=== PATIENT | female | born 1950 | race Caucasian/White ===

== ENCOUNTER 2017-01-04 16:37 | Emergency (ER) | payer MEDICARE, OTHER ==
[~2017-01-04] VITALS: Ht 170.2 cm; Wt 89.6 kg
[~2017-01-04 16:37] MED LIST: ACET-62 PO; ASCO500T9 PO; CALC750T4 PO; DRON400T2 PO; FEXO-118 PO; FURO40TA5 PO; LABE200T PO; LISI10TA7 PO; METF750T2 PO; OMEP20TA11 PO; RIVA20TA PO
--- OUTSIDE RECORDS SUMMARY | 2017-01-04 16:43 | XMS REPORT | Continuity of Care Document ---
Author Author [facility] Organization [facility] Address Unknown Phone Unavailable Support Name Relationship Address Phone JANUARY, GENE Ruggiero DO Caregiver [address] [place] [address] Unavailable MITCHEL ARGUELLO DO Caregiver [address] [place] [address] Unavailable JONATHAN SCOTT Next Of Kin [address] [place] [address] Insurance Providers Guarantor Ree Saab Address [address] [place] [address] Email [email or web address] Payer Medicare Policy Number [id number] Subscriber's Name Ree Saab Relationship 18 Self Payer Other A Insurance Policy Number [id number] Subscriber's Name Ree Saab Relationship 18 Self Group Number [id number] Chief Complaint and Reason for Visit Chief Complaint Palpitations Reason for Visit Palpitations A-fib Problems Active Problems Medical Problem Onset Date Status Acute encephalopathy Unknown Resolved Atrial Fibrillation Unknown Acute CAD (coronary artery disease) Unknown Chronic Chest rales Unknown Acute Diabetes mellitus Unknown Chronic Diarrhea Unknown Resolved Dyslipidemia Unknown Chronic Hypertension Unknown Chronic Hypokalemia Unknown Acute Left knee pain Unknown Acute Left knee pain Unknown Acute Leukocytosis Unknown Acute PSVT (paroxysmal supraventricular tachycardia) Unknown Acute Pneumonia involving left lung Unknown Acute Pulmonary edema Unknown Acute Sepsis Unknown Acute Past Problems Medical Problem Onset Date A-fib Unknown Atrial fibrillation with rapid ventricular response Unknown Laceration of mouth Unknown Palpitations Unknown Medications Current Home Medications Medication Dose Units Route Directions Days Qty Instructions Start Date Acetaminophen 500 Mg Tablet 2 Tab Oral Every 4 Hours as needed for Pain 03/04/15 Ascorbic Acid (Vitamin C) 500 Mg Tablet 500 Mg Oral As Needed Calcium Carbonate (Tums) 300 Mg Tab.chew 2 Tab Oral As Needed Dronedarone Hcl (Multaq) 400 Mg Tablet 400 Mg Oral Twice A Day Fexofenadine Hcl 180 Mg Tablet 180 Mg Oral Daily 06/15/16 Furosemide 40 Mg Tablet 40 Mg Oral Daily as needed for Prn Orders 03/04/15 Labetalol Hcl 200 Mg Tablet 200 Mg Oral Twice A Day 06/15/16 Lisinopril 10 Mg Tablet 10 Mg Oral Daily for Hypertension Metformin Hcl (Metformin Hcl Er) 750 Mg Tablet 750 Mg Oral Bedtime 07/31/14 Omeprazole Magnesium (Prilosec Otc) 20 Mg Tablet.dr 20 Mg Oral Daily 01/10/10 Rivaroxaban (Xarelto) 20 Mg Tablet 20 Mg Oral Bedtime 12/11/15 Past Home Medications Medication Directions Ordered Status Amiodarone Hcl 200 Mg Tablet, 1 Tab Oral Daily 03/04/15 Discontinued Cephalexin Monohydrate (Keflex) 500 Mg Capsule, 500 Mg Oral Three Times A Day 08/28/13 Discontinued Diltiazem Hcl (Diltiazem 24HR Cd) 360 Mg Cap.er.24h, 360 Mg Oral Daily Discontinued Flecainide Acetate 50 Mg Tablet, 1 Tab Oral Twice A Day 03/04/15 Discontinued Furosemide 40 Mg Tablet, 40 Mg Oral Twice A Day 07/31/14 Discontinued Magnesium Oxide (Magnesium) 500 Mg Capsule, 1 Cap Oral Twice A Day 07/31/14 Discontinued Metoprolol Tartrate 100 Mg Tablet, 1 Tab Oral Twice A Day 07/31/14 Discontinued Oxycodone Hcl/Acetaminophen (Percocet 5-325 Mg Tablet) 1 Each Tablet, 0.5-1 Tab Oral Every 4-6 Hours as needed for Pain 03/04/15 Discontinued Pindolol 5 Mg Tablet, 5 Mg Oral Daily 01/10/10 Discontinued Triamterene/Hydrochlorothiazid (Triamterene-Hctz 75-50 Tab) 1 Tab Tablet, 1 Cap Oral Daily 01/10/10 Discontinued Triamterene/Hydrochlorothiazid (Triamterene-Hctz 75/50 Tab) 1 Tab Tablet, 1 Tab Oral Daily 11/08/09 Discontinued Warfarin Sodium 5 Mg Tablet, 1 Tab Oral Bedtime 03/04/15 Discontinued Social History Social History Problem Response Recorded Date/Time Onset Date Status Hx Substance Use No 10/03/2016 6:54pm Not Applicable Not Applicable Hx Alcohol Use No 10/03/2016 6:54pm Not Applicable Not Applicable Has the pt used tobacco in the last 12 months No 12/12/2015 6:05am Not Applicable Not Applicable Tobacco Usage none 07/23/2015 3:23pm Not Applicable Not Applicable Query Response Start Date Stop Date Smoking Status Former smoker Hospital Discharge Instructions No hospital discharge instructions. Plan of Care Discharge Date 10/03/16 8:48pm Disposition 01 DISCHARGED HOME, SELF-CARE Condition at Discharge Improved Instructions/Education Provided Atrial Fibrillation Prescriptions See Medication Section Referrals MITCHEL ARGUELLO DO Order Date: 1 Week Address: [address] [place] [address] [address] [place] [address] [phone] Note: ANA VASQUEZ MD Order Date: 3 Days Address: [address] [place] [address] [address] [place] [address] [phone] Additional Instructions/Education You likely did convert to an abnormal rhythm. The multaq likely brought your heart back to a regular rhythm. Follow up with Dr. Vasquez next week ( preferably Thursday or Thursday). Follow up with your family doctor. I would not recommend taking this much multaq so soon in the future. Care Plan and Goals Physician Care Plan Problem: Palpitations Goal: Follow up with primary care provider Instructions: Take medications and follow care plan as discussed/written Functional Status No functional status results. Allergies, Adverse Reactions, Alerts Allergen Type Severity Reaction Status Last Updated hydrocodone bit Adverse Reaction Unknown N/V Active 10/03/16 Nitroglycerin Adverse Reaction Intermediate Active 10/03/16 Niacin Adverse Reaction Unknown N/V Active 10/03/16 Diazepam Allergy Unknown Active 10/03/16 Codeine Allergy Unknown Active 10/03/16 Sulbactam Allergy Unknown Active 10/03/16 Cefoperazone Allergy Unknown Active 10/03/16 Immunizations Query Response on File Recorded Date/Time Hx Influenza Vaccination No 12/11/15 8:51am Hx Pneumococcal Vaccination No 12/11/15 8:51am Hx Tetanus, Diptheria, Pertussis NO SKIN DISRUPTIONS 03/04/15 3:28pm Hx Influenza Vaccination No 12/11/15 8:51am Hx Tetanus, Diptheria, Pertussis NO SKIN DISRUPTIONS 03/04/15 3:28pm Influenza Vaccine Hx refuses 10/03/16 6:54pm Vital Signs Acute Vital Signs Vital Response Date/Time Temperature (Fahrenheit) 97.8 deg F (96.8 - 99.1) 10/03/2016 8:48pm Temperature (Calculated Celsius) 36.94483 degrees C (36.0 - 37.3) 10/03/2016 8:48pm Pulse Rate (adult) 70 bpm (60 - 100) 10/03/2016 8:48pm Respiratory Rate 22 breaths/min (10 - 20) 10/03/2016 8:48pm O2 Sat by Pulse Oximetry 94 % (90 - 100) 10/03/2016 8:48pm Blood Pressure 140/66 mm Hg 10/03/2016 8:48pm Height (Feet) 5 feet 10/03/2016 6:40pm Height (Inches) 5.00 inches 10/03/2016 6:40pm Weight (Kilograms) 96.000 kg 10/03/2016 6:40pm Body Mass Index (BMI) 35.0 10/03/2016 6:40pm Results Laboratory Results Test Name Result Units Flags Reference Collection Date/Time Result Date/ Time Comments White Blood Count 6.9 T/MM3 4.5-11.0 10/03/2016 7:02pm 10/03/2016 7: 10pm Red Blood Count 4.53 M/MM3 4.00-5.20 10/03/2016 7:02pm 10/03/2016 7: 10pm Hemoglobin 11.9 GM/DL L 12-16 10/03/2016 7:02pm 10/03/2016 7:10pm Hematocrit 37.8 % 36-46 10/03/2016 7:02pm 10/03/2016 7:10pm Mean Corpuscular Volume 83.4 UM3 80-100 10/03/2016 7:02pm 10/03/2016 7: 10pm Mean Corpuscular Hemoglobin 26.3 UUG 26-34 10/03/2016 7:02pm 2016 7:10pm Mean Corpuscular Hemoglobin Concent 31.5 GM/DL 31-37 10/03/2016 7:pm 10/03/2016 7:10pm RDW Standard Deviation 45.1 FL 36.9-50.2 10/03/2016 7:0210/03/2016 7 :10pm Platelet Count 172 T/MM3 130-400 10/03/2016 7:02pm 10/03/2016 7:10pm Mean Platelet Volume 11.1 UM3 9.4-12.4 10/03/2016 7:02pm 10/03/2016 7: 10pm Neutrophils (%) (Auto) 77.2 % H 33-66 10/03/2016 7:02pm 10/03/2016 7: 10pm Lymphocytes (%) (Auto) 12.6 % L 23-45 10/03/2016 7:02pm 10/03/2016 7: 10pm Monocytes (%) (Auto) 7.0 % 0-9.0 10/03/2016 7:02pm 10/03/2016 7:10pm Eosinophils (%) (Auto) 2.9 % 0-4 10/03/2016 7:02pm 10/03/2016 7:10pm Basophils (%) (Auto) 0.3 % 0-2 10/03/2016 7:02pm 10/03/2016 7:10pm Immature Granulocyte % (Auto) 0.0 % 0.0-0.5 10/03/2016 7:02pm 2016 7:10pm Absolute Neutrophils (auto) 5.3 T/MM3 1.8-7.7 10/03/2016 7:02pm 2016 7:10pm Absolute Lymphocytes (auto) 0.9 T/MM3 L 1-4.8 10/03/2016 7:02pm 2016 7:10pm Absolute Monocytes (auto) 0.5 T/MM3 0-0.8 10/03/2016 7:02pm 10/03/2016 7:10pm Absolute Eosinophils (auto) 0.2 T/MM3 0-0.5 10/03/2016 7:02pm 2016 7:10pm Absolute Basophils (auto) 0.0 T/MM3 0-0.2 10/03/2016 7:02pm 10/03/2016 7:10pm Absolute Immature Granulocyte (auto 0.00 T/MM3 0.00-0.03 10/03/2016 7: 02pm 10/03/2016 7:10pm Icterus Index < 2 0-7 10/03/2016 7:02pm 10/03/2016 7:16pm Chemistry Specimen Hemolysis < 15 0-25 10/03/2016 7:02pm 10/03/2016 7 :16pm 0-25: Specimen Exhibited No Hemolysis. Turbidity < 20 0-20 10/03/2016 7:02pm 10/03/2016 7:16pm Sodium Level 143 MEQ/L 134-144 10/03/2016 7:02pm 10/03/2016 7:16pm Potassium Level 3.9 MEQ/L 3.6-5 10/03/2016 7:02pm 10/03/2016 7:16pm Chloride Level 109 MEQ/L H 98-107 10/03/2016 7:02pm 10/03/2016 7:16pm Carbon Dioxide Level 23 MEQ/L 22-30 10/03/2016 7:02pm 10/03/2016 7: 16pm Anion Gap 11 MEQ/L 5-15 10/03/2016 7:02pm 10/03/2016 7:16pm Blood Urea Nitrogen 20.0 MG/DL H 7-17 10/03/2016 7:02pm 10/03/2016 7: 16pm Creatinine 1.3 MG/DL H 0.7-1.2 10/03/2016 7:02pm 10/03/2016 7:16pm BUN/Creatinine Ratio 15 RATIO 6-26 10/03/2016 7:02pm 10/03/2016 7:16pm Glomerular Filtration Rate Calc 41 10/03/2016 7:02pm 10/03/2016 7: 16pm Glucose Level 125 MG/DL H 65-110 10/03/2016 7:02pm 10/03/2016 7:16pm Calculated Osmolality 279 MOSM/KG 261-280 10/03/2016 7:02pm 10/03/2016 7:16pm Calcium Level 9.6 MG/DL 8.4-10.2 10/03/2016 7:02pm 10/03/2016 7:16pm Troponin I < 0.012 ng/ml 0-0.12 10/03/2016 7:02pm 10/03/2016 7:28pm Troponin values with a difference of 55% increase from orginal troponin value represent a true biological DELTA value. (%increase Calc=Orginal Troponin value, divided by subsequent Troponin value, multiplied by 100) Thyroid Stimulating Hormone (TSH) 2.26 MIU/L 0.47-4.68 10/03/2016 7: 02pm 10/03/2016 7:47pm Procedures Procedure Status Date Provider(s) Rpr f/e/e/n/l/m 2.5 cm/< Completed 09/18/16 SAVI ALVAREZ MD Emergency dept visit Completed 09/18/16 Encounters Encounter Location Arrival/Admit Date Discharge/Depart Date Attending Provider Departed Emergency Room [facility] 10/03/16 6:40pm 10/03/16 8: 48pm JANUARYGENE DO Departed Emergency Room [facility] 09/18/16 11:55pm 09/19/16 1: 31am SAVI ALVAREZ MD Recent Diagnosis
--- OUTSIDE RECORDS SUMMARY | 2017-01-04 16:43 | XMS REPORT | Continuity of Care Document ---
Author Author [facility] Organization [facility] Address Unknown Phone Unavailable Support Name Relationship Address Phone ANA VASQUEZ MD Caregiver [address] [place] [address] [address] [place] [address] Unavailable MITCHEL ARGUELLO DO Caregiver [address] [place] [address] Unavailable JONATHAN SCOTT Next Of Kin [address] [place] [address] Insurance Providers Guarantor Ree Saab Address [address] [place] [address] Email Payer Medicare Policy Number [id number] Subscriber's Name Ree Saab Relationship 18 Self Payer Other A Insurance Policy Number [id number] Subscriber's Name Ree Saab Relationship 18 Self Group Number [id number] Advance Directives Directive Response Recorded Date/Time Resuscitation Documents on File N PT VERBALLY REQUESTS FC 10/07/16 2:31pm DPOA for Healthcare Only No 10/07/16 2:31pm Living Will No 10/07/16 2:31pm Problems Active Problems Medical Problem Onset Date [...] Problem Response Recorded Date/Time Onset Date Status Reason for Hospitalization [facility] 10/07/2016 6:09pm Not Applicable Not Applicable Hx Substance Use No 10/03/2016 6:54pm Not Applicable Not Applicable Hx Alcohol Use No 10/03/2016 6:54pm Not Applicable Not Applicable Has the pt used tobacco in the last 12 months No 10/07/2016 2:37pm Not Applicable Not Applicable Tobacco Usage none 07/23/2015 3:23pm Not Applicable Not Applicable Query Response Start Date Stop Date Smoking Status Former smoker Hospital Discharge Instructions Instructions: Care Instructions: I was in the hospital because (patient own words): 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 Follow Up Appointments: Follow up with Dr. Vasquez on: 10/22/16 at 1:30 Pending Lab / Results: No Pending Lab Expected Signs/Symptoms: NA Notify Physician If: NA During Business Hours:: Please call the physician's office at [phone] After Business Hours:: Please call [phone] and have the bow making machine operator page the physician. Pain Management/Treatment: NA Pain Scale Utilized to Educate Patient: 0-10 Pain Scale Wound/Incision Care: NA Condition at time of discharge: Good Plan of Care Discharge Date 10/07/16 7:00pm Prescriptions See Medication Section Functional Status Query Response Date Recorded Mobility Status Ambulatory October 07, 2016 2:42pm Assistive Devices None October 07, 2016 2:42pm Activity Limitations None October 07, 2016 2:42pm Feeding Ability Independent October 07, 2016 2:42pm Toileting Ability Independent October 07, 2016 2:42pm Grooming Ability Independent October 07, 2016 2:42pm Dressing Ability Independent October 07, 2016 2:42pm Driving Ability Independent October 07, 2016 2:42pm Housework Ability Independent October 07, 2016 2:42pm Meal Preparation Ability Independent October 07, 2016 2:42pm Stair Climbing Ability Independent October 07, 2016 2:42pm Ability to complete ADL's impeded by No change October 07, 2016 2:42pm Cognitive/Perceptual Impairments Impaired vision October 07, 2016 2:42pm Visual Assistive Devices Glasses With patient October 07, 2016 2:42pm Preferred Method of Learning Listening October 07, 2016 2:42pm Allergies, Adverse Reactions, Alerts Allergen Type Severity Reaction Status Last Updated hydrocodone bit Adverse Reaction Unknown N/V Active 10/03/16 Nitroglycerin Adverse Reaction Intermediate Active 10/03/16 Niacin Adverse Reaction Unknown N/V Active 10/03/16 Diazepam Allergy Unknown Active 10/03/16 Codeine Allergy Unknown Active 10/03/16 Sulbactam Allergy Unknown Active 10/03/16 Cefoperazone Allergy Unknown Active 10/03/16 Immunizations Query Response on File Recorded Date/Time Hx Influenza Vaccination N DOES NOT TAKE 10/07/16 2:37pm Hx Pneumococcal Vaccination N DOES NOT TAKE 10/07/16 2:37pm Hx Tetanus, Diptheria, Pertussis NO SKIN DISRUPTIONS 03/04/15 3:28pm Hx Influenza Vaccination N DOES NOT TAKE 10/07/16 2:37pm Hx Tetanus, Diptheria, Pertussis NO SKIN DISRUPTIONS 03/04/15 3:28pm Influenza Vaccine Hx refuses 10/03/16 6:54pm Vital Signs Acute Vital Signs Vital Response Date/Time Temperature (Fahrenheit) 98.1 deg F (96.8 - 99.1) 10/07/2016 4:30pm Temperature (Calculated Celsius) 36.16539 degrees C (36.0 - 37.3) 10/07/2016 4:30pm Pulse Rate (adult) 86 bpm (60 - 100) 10/07/2016 5:15pm Respiratory Rate 31 breaths/min (10 - 20) 10/07/2016 5:15pm O2 Sat by Pulse Oximetry 95 % (90 - 100) 10/07/2016 5:15pm Oxygen Delivery Method Nasal Cannula 10/07/2016 4:15pm Oxygen Delivery Method Room Air 10/07/2016 5:15pm Oxygen Flow Rate 2.00 L/min 10/07/2016 4:15pm Blood Pressure 141/87 mm Hg 10/07/2016 5:15pm Blood Pressure Source Automatic Cuff 10/07/2016 5:15pm Height (Feet) 5 feet 10/07/2016 2:30pm Height (Inches) 5.00 inches 10/07/2016 2:30pm Weight (Kilograms) 93.500 kg 10/07/2016 2:30pm Body Mass Index (BMI) 34.3 10/07/2016 2:30pm Results Laboratory Results Test Name Result Units Flags Reference Collection Date/Time Result Date/ Time Comments White Blood Count 6.9 T/MM3 4.5-11.0 10/03/2016 7:02pm 10/03/2016 7: 10pm Red Blood Count 4.53 M/MM3 4.00-5.20 10/03/2016 7:02pm 10/03/2016 7: 10pm Hemoglobin 11.9 GM/DL L 12-16 10/03/2016 7:0210/03/2016 7:10pm Hematocrit 37.8 % 36-46 10/03/2016 7:10/03/2016 7:10pm Mean Corpuscular Volume 83.4 UM3 80-100 10/03/2016 7:10/03/2016 7: 10pm Mean Corpuscular Hemoglobin 26.3 UUG 26-34 10/03/2016 7:pm 2016 7:10pm Mean Corpuscular Hemoglobin Concent 31.5 GM/DL 31-37 10/03/2016 7:10/03/2016 7:10pm RDW Standard Deviation 45.1 FL 36.9-50.2 10/03/2016 7:10/03/2016 7 :10pm Platelet Count 172 T/MM3 130-400 10/03/2016 7:10/03/2016 7:10pm Mean Platelet Volume 11.1 UM3 9.4-12.4 10/03/2016 7:10/03/2016 7: 10pm Neutrophils (%) (Auto) 77.2 % H 33-66 10/03/2016 7:0210/03/2016 7: 10pm Lymphocytes (%) (Auto) 12.6 % L 23-45 10/03/2016 7:10/03/2016 7: 10pm Monocytes (%) (Auto) 7.0 % 0-9.0 10/03/2016 7:10/03/2016 7:10pm Eosinophils (%) (Auto) 2.9 % 0-4 10/03/2016 7:10/03/2016 7:10pm Basophils (%) (Auto) 0.3 % 0-2 10/03/2016 7:10/03/2016 7:10pm Immature Granulocyte % (Auto) 0.0 % 0.0-0.5 10/03/2016 7:2016 7:10pm Absolute Neutrophils (auto) 5.3 T/MM3 1.8-7.7 [...] T/MM3 0.00-0.03 10/03/2016 7: 02pm 10/03/2016 7:10pm Troponin I < 0.012 ng/ml 0-0.12 10/03/2016 7:02pm 10/03/2016 7:28pm Troponin values with a difference of 55% increase from orginal troponin value represent a true biological DELTA value. (%increase Calc=Orginal Troponin value, divided by subsequent Troponin value, multiplied by 100) Thyroid Stimulating Hormone (TSH) 2.26 MIU/L 0.47-4.68 10/03/2016 7: 02pm 10/03/2016 7:47pm Icterus Index < 2 0-7 10/07/2016 2:44pm 10/07/2016 3:20pm Chemistry Specimen Hemolysis < 15 0-25 10/07/2016 2:44pm 10/07/2016 3 :20pm 0-25: Specimen Exhibited No Hemolysis. Turbidity < 20 0-20 10/07/2016 2:44pm 10/07/2016 3:20pm Sodium Level 143 MEQ/L 134-144 10/07/2016 2:44pm 10/07/2016 3:20pm Potassium Level 4.0 MEQ/L 3.6-5 10/07/2016 2:44pm 10/07/2016 3:20pm Chloride Level 108 MEQ/L H 98-107 10/07/2016 2:44pm 10/07/2016 3:20pm Carbon Dioxide Level 20 MEQ/L L 22-30 10/07/2016 2:44pm 10/07/2016 3: 20pm Anion Gap 15 MEQ/L 5-15 10/07/2016 2:44pm 10/07/2016 3:20pm Blood Urea Nitrogen 18.0 MG/DL H 7-17 10/07/2016 2:44pm 10/07/2016 3: 20pm Creatinine 1.1 MG/DL 0.7-1.2 10/07/2016 2:44pm 10/07/2016 3:20pm BUN/Creatinine Ratio 16 RATIO 6-26 10/07/2016 2:44pm 10/07/2016 3:20pm Glomerular Filtration Rate Calc 50 10/07/2016 2:44pm 10/07/2016 3: 20pm Glucose Level 95 MG/DL 65-110 10/07/2016 2:44pm 10/07/2016 3:20pm Calculated Osmolality 277 MOSM/KG 261-280 10/07/2016 2:44pm 10/07/2016 3:20pm Calcium Level 9.8 MG/DL 8.4-10.2 10/07/2016 2:44pm 10/07/2016 3:20pm Total Bilirubin 1.10 MG/DL 0.20-1.30 10/07/2016 2:44pm 10/07/2016 3: 20pm Alkaline Phosphatase 94 U/L 38-126 10/07/2016 2:44pm 10/07/2016 3:20pm Total Protein 7.4 G/DL 6.3-8.2 10/07/2016 2:44pm 10/07/2016 3:20pm Albumin 4.5 G/DL 3.5-5.0 10/07/2016 2:44pm 10/07/2016 3:20pm Globulin 2.9 G/DL 2.4-3.6 10/07/2016 2:44pm 10/07/2016 3:20pm Albumin/Globulin Ratio 1.6 RATIO 1.1-2.2 10/07/2016 2:44pm 10/07/2016 3 :20pm Aspartate Amino Transf (AST/SGOT) 18 U/L 14-36 10/07/2016 2:44pm 2016 3:20pm Alanine Aminotransferase (ALT/SGPT) 30 U/L 9-52 10/07/2016 2:44pm 10/07 3:20pm Magnesium Level 1.9 MG/DL 1.6-2.3 10/07/2016 2:44pm 10/07/2016 3:20pm Procedures Procedure Status Date Provider(s) Rpr f/e/e/n/l/m 2.5 cm/< Completed 09/18/16 SAVI ALVAREZ MD Emergency dept visit Completed 09/18/16 Chest x-ray 2vw frontal&latl Completed 10/03/16 Metabolic panel total ca Completed 10/03/16 Assay thyroid stim hormone Completed 10/03/16 Assay of troponin quant Completed 10/03/16 Complete cbc w/auto diff wbc Completed 10/03/16 Electrocardiogram tracing Completed 10/03/16 Hydration iv infusion init Completed 10/03/16 Emergency dept visit Completed 10/03/16 [id number]"INFUSION, NORMAL SALINE SOLUTION , 1000 CC" Completed 10/03/16 Encounters Encounter Location Arrival/Admit Date Discharge/Depart Date Attending Provider Departed Clinic [facility] 10/07/16 1:56pm 10/07/16 7:00pm ANA VASQUEZ MD Departed Emergency Room [facility] 10/03/16 6:40pm 10/03/16 8: 48pm JANUARYGENE DO Departed Emergency Room [facility] 09/18/16 11:55pm 09/19/16 1: 31am SAVI ALVAREZ MD
[2017-01-04 16:45] VITALS: Ht 170.2 cm; Wt 89.6 kg
[2017-01-04 17:03] LABS: ALBUMIN 4.5 G/DL (3.5-5.0); ALBUMIN/GLOBULIN RATIO 1.5 RATIO (1.1-2.2); ALKALINE PHOSPHATASE 114 U/L (38-126); ALT (SGPT) 21 U/L (9-52); ANION GAP 16 MEQ/L (5-15); AST (SGOT) 26 U/L (14-36); BUN/CREATININE RATIO 15 RATIO (6-26); CALCIUM 9.8 MG/DL (8.4-10.2); CHLORIDE 102 MEQ/L (98-107); CO2 - CARBON DIOXIDE 24 MEQ/L (22-30); CREATININE 1.6 MG/DL (0.7-1.2); GLOMERULAR FILTRATION RATE 32; GLUCOSE 101 MG/DL (65-110); POTASSIUM 3.9 MEQ/L (3.6-5); SODIUM 142 MEQ/L (134-144); TOTAL PROTEIN 7.5 G/DL (6.3-8.2)
[2017-01-04 17:04] LABS: BASOPHILS % (AUTO) 0.1 % (0-2); EOSINOPHILS # (AUTO) 0.1 T/MM3 (0-0.5); HCT - HEMATOCRIT 39.1 % (36-46); HGB - HEMOGLOBIN 12.3 GM/DL (12-16); IMMATURE GRANULOCYTE # (AUTO) 0.03 T/MM3 (0.00-0.03); IMMATURE GRANULOCYTE % (AUTO) 0.4 % (0.0-0.5); LYMPHOCYTES # (AUTO) 0.9 T/MM3 (1-4.8); LYMPHOCYTES % (AUTO) 11.2 % (23-45); MEAN CORPUSCULAR HGB 25.5 UUG (26-34); MEAN CORPUSCULAR HGB CONC(MCHC 31.5 GM/DL (31-37); MEAN PLATELET VOLUME 12.1 UM3 (9.4-12.4); MONOCYTES # (AUTO) 0.9 T/MM3 (0-0.8); MONOCYTES % (AUTO) 11.7 % (0-9.0); NEUTROPHILS #(AUTO)-ABSOLUTE 5.8 T/MM3 (1.8-7.7); NEUTROPHILS % (AUTO) 75.6 % (33-66); RED BLOOD COUNT 4.83 M/MM3 (4.00-5.20); WBC - WHITE BLOOD COUNT 7.7 T/MM3 (4.5-11.0)
--- NOTE | 2017-01-04 17:08 | ERPDOC ---
Departure Disposition Decision Date: Jan 04, 2017 Disposition Decision Time: 18:01 Disposition: 02 TO [facility] ACUTE CARE Impression Impression Impression: Primary Impression: Aphasia Additional Impression: Right sided weakness Severity: Moderate Condition: Stable Seen By: Mid-level only Referrals: MITCHEL ARGUELLO DO (Family) Problems/Meds/Labs Reviewed?: Yes Medications reviewed and manag: Yes Follow up care ordered?: Yes Mental Status: Alert HPI - General Medical General Chief Complaint: Altered Mental Status Stated Complaint: ALTERED MENTAL STATUS Time Seen by Provider: 16:45 Source: patient Exam Limitations: no limitations HPI - General Medical Initial Comments She was at home today eating dinner with her sister and family. Her sister left to go run some errands for her. She called Ree at home and asked her some questions about the errands but wasnt able to understand her on the phone. She finished up her shopping and went to Ree's house. She was inside and was able to converse with her at that time better than on the phone but did not seem at her baseline. They did call EMS and have her transported. Per Medic she was able to converse and did seem to be doing better overall but upon arrival to the hospital she again seemed to not be able to speak easily at all. Does not seem to have any deficits as she is moving all extremities well on the bed but does not follow command. She does have a history of atrial fibrillation and does take Xarelto for this. She also did have a cardiac ablation done in early December. Occurred At: home Onset: Rapid Duration: 1 hr Severity: moderate Associated Symptoms: denies symptoms (due to ) Hx of Similar Symptoms: No Allergies: Coded Allergies: cefoperazone (Unverified Allergy, Unknown, 01/04/17) codeine (Verified Allergy, Unknown, 01/04/17) diazepam (Verified Allergy, Unknown, 01/04/17) sulbactam (Unverified Allergy, Unknown, 01/04/17) nitroglycerin (Verified Adverse Reaction, Intermediate, 01/04/17) MIGRAINES hydrocodone bit (Verified Adverse Reaction, Unknown, N/V, 01/04/17) niacin (Verified Adverse Reaction, Unknown, N/V, 01/04/17) Past History Past Medical History Metabolic: diabetes, hypertension Cardiac: A-fib, CAD GI: GERD Female: endometriosis, renal insufficiency Surgical History Cardiac: cardiac cath Family History Family PMH: FOUND: hypertension Vaccines Hx Influenza Vaccination: No (DOES NOT TAKE) Hx Pneumococcal Vaccination: No (DOES NOT TAKE) Social History Smoking Status: Never smoker Does patient use chewing tobac: No Substance Use Type: does not use Alcohol Intake: none Review of Systems Unable to Obtain ROS Due to: clinical condition, language barrier Constitutional Constitutional: DENIES: chills, dizziness, fatigue, fever, weakness Eyes Vision: DENIES: blurring, double vision ENMT Ears: DENIES: drainage, pain Sinuses: DENIES: congestion, rhinorrhea Mouth/Throat: DENIES: painful swallowing, scratchy throat, sore throat Cardiovascular Cardiac: DENIES: chest pain, orthopnea Rhythm/Rate: DENIES: irregular beat, palpitations Pulmonary Respiratory: DENIES: cough, dyspnea, sputum, tachypnea GI Upper Abdomen: DENIES: nausea, pain, vomiting Lower Abdomen: DENIES: constipation, diarrhea, pain Neurological General: DENIES: headache, numbness, tingling, weakness Physical Exam General General Nourishment: well nourished, well developed, appears stated age, no acute distress, adult General Body Habitus: well groomed Vitals and Pain First Documented Vital Signs Date Time Temp Pulse Resp B/P Pulse Ox O2 Delivery O2 Flow Rate FiO2 01/04/17 16:37 98.5 69 25 174/79 99 Room Air Weight: Kilograms: 89.600 Height (feet): 5 Height (inches): 7.00 Triage Pain Scale: RN VS reviewed by Provider: Yes Normal Exams: Head: Normocephalic w/o trauma Eyes: Pupils are PERRLA w/ EOMI, No scleral icterus, irritation, or foreign bodies noted ENMT: No facial trauma, nasal exudates, pharyngeal erythema, or exudates are noted Neck: Full range of motion, without adenopathy, JVD, bruits or thyromegaly Chest/Resp: Clear all ruiz, with good airflow, and symmetry bilaterally CV: Regular rate and rhythm, without murmur or gallop, Pulses 2+ all extremities, capillary refill, <2 seconds all ext., no pedal edema noted Abdomen: Bowel sounds positive, soft, non-tender, non-distended, no hepatosplenomegaly, masses or bruits noted Lymphatic: No lymphadenopathy, or lymphedema noted Integumentary: No rashes, hives, or bruising noted Neurologic: Patient is alert Psychiatric: Patient exhibits, appropriate attention, emotion and affect Neurologic Mental Status: FOUND: alert, other (She does not follow commands when asked to move her extremities. When asked if she knows where she is she does state yes but then does not have clear speech, is garbled, with her answer. ) GCS Adult : GCS Eye Opening: (4)Spontaneous GCS Verbal: (3)Inappropriate GCS Motor: (5)Localizes to Pain Differential Diagnoses Considering: CVA, Drug Overdose, Encephalitis, Hypo/Hyperglycemia, Hypo/ Hyperkalemia, Hypo/Hypernatremia, Medication Effect, Meningitis, Metabolic, Seizure, UTI Progress Results/Orders Orders Procedure Category Date Status Time Ct Head W/O Contrast CT 01/04/17 Taken Troponin I W LAB 01/04/17 Complete Hemolysis Index EKG EKG 01/04/17 Logged Cbc W/Auto LAB 01/04/17 Complete Diff-Reflex Manual Cmp - Comprehensive LAB 01/04/17 Complete Metabolic Iv Lock (Ed Only) EDM 01/04/17 Transmitted 16:44 Drug Screen LAB 01/04/17 Complete Urine-Test At [facility] [place] 17:35 UA, LAB 01/04/17 Complete Dip&Micro(Complete) & 17:45 Lab Results Laboratory Tests Test 01/04/17 16:48 01/04/17 17:45 White Blood Count 7.7T/MM3 Red Blood Count 4.83M/MM3 Hemoglobin 12.3GM/DL Hematocrit 39.1% Mean Corpuscular Volume 81.0UM3 Mean Corpuscular Hemoglobin 25.5UUG Mean Corpuscular Hemoglobin Concent 31.5GM/DL RDW Standard Deviation 45.7FL Platelet Count 187T/MM3 Mean Platelet Volume 12.1UM3 Immature Granulocyte % (Auto) 0.4% Neutrophils (%) (Auto) 75.6% Lymphocytes (%) (Auto) 11.2% Monocytes (%) (Auto) 11.7% Eosinophils (%) (Auto) 1.0% Basophils (%) (Auto) 0.1% Absolute Immature Granulocyte (auto 0.03T/MM3 Absolute Neutrophils (auto) 5.8T/MM3 Absolute Lymphocytes (auto) 0.9T/MM3 Absolute Monocytes (auto) 0.9T/MM3 Absolute Eosinophils (auto) 0.1T/MM3 Absolute Basophils (auto) 0.0T/MM3 Turbidity < 20 Sodium Level 142MEQ/L Potassium Level 3.9MEQ/L Chloride Level 102MEQ/L Carbon Dioxide Level 24MEQ/L Anion Gap 16MEQ/L Blood Urea Nitrogen 24.0MG/DL Creatinine 1.6MG/DL Glomerular Filtration Rate Calc 32 BUN/Creatinine Ratio 15RATIO Glucose Level 101MG/DL Calculated Osmolality 277MOSM/KG Calcium Level 9.8MG/DL Total Bilirubin 1.10MG/DL Icterus Index < 2 Aspartate Amino Transf (AST/SGOT) 26U/L Alanine Aminotransferase (ALT/SGPT) 21U/L Alkaline Phosphatase 114U/L Troponin I < 0.012ng/ml Total Protein 7.5G/DL Albumin 4.5G/DL Globulin 3.0G/DL Albumin/Globulin Ratio 1.5RATIO Chemistry Specimen Hemolysis < 15 Urine Collection Type Cleancatch-midstream Urine Color Yellow Urine Turbidity Clear Urine pH 5.5 Urine Specific [place] 1.020 Urine Protein 1+ Urine Glucose (UA) Negative Urine Ketones Trace Urine Blood Negative Urine Nitrite Negative Urine Bilirubin 1+ Urine Urobilinogen 0.2EU/DL Urine Leukocyte Esterase Negative Urine RBC 0-1/HPF Urine WBC 0-1/HPF Urine Squamous Epithelial Cells 5-10 Urine Amorphous Urates Few Urine Bacteria 1+ Urine Hyaline Casts 1-3/LPF Urine Mucus Present Urine Culture Indicated Cult not indicated Urine Opiates Screen PositiveNG/ML Urine Oxycodone Screen NegativeNG/ML Urine Methadone Screen NegativeNG/ML Urine Propoxyphene Screen NegativeNG/ML Urine Barbiturates Screen NegativeNG/ML Urine Tricyclic Antidepressants NegativeNG/ML Urine Phencyclidine Screen NegativeNG/ML Urine Amphetamines Screen NegativeNG/ML Urine Methamphetamines Screen NegativeNG/ML Urine Benzodiazepines Screen NegativeNG/ML Urine Cocaine Screen NegativeNG/ML Urine Cannabinoids Screen NegativeNG/ML Urine Drug Screen Confirmation Sent out Urine Drug Screen Information Pending Progress Progress 1717- CT scan today is negative for hemorrhage 1722-teleneurologist group notified of need for neurological evaluation 1723- Dr Whatley does return call. States that he is in the middle of another neurology consult and will contact for exam soon. 1744-Dr Whatley with patient on monitor for teleexam with family at bedside as well as RN and [employer]. She does continue to moan and move around but does calm during exam. Per Dr Whatley he is concerned that she may have some right sided weakness as she cannot hold her right arm up and he felt that she has a right sided facial drooping as well. Recommends transfer to stroke center for further evaluation. She is not a candidate for TPA due to her Xarelto usage. 1751- [facility] contacted for consult with neurology for transfer 180- Dr Grossman does accept patient for transfer to [facility]. He does request patient to get 500ml of NS bolus prior to transfer. This has been given. She will go to ER for CTA of head and neck up on arrival. 182-EMS at bedside and report given. She does continue to moan out and is more agitated. She does say "ow,ow,ow" and holds her head. CT CT : Reason for Exam: aphasia CT: Head no contrast Interpretation: Normal ROWDY ROACH APRN Jan 04, 2017 17:08
[2017-01-04 18:14] LABS: BLOOD, URINE NEGATIVE (NEGATIVE); COLOR,URINE YELLOW (YELLOW); LEUKOCYTE ESTERASE ,URINE NEGATIVE (NEGATIVE); NITRITE,URINE NEGATIVE (NEGATIVE); UROBILINOGEN,URINE 0.2 EU/DL (NORMAL)
--- NOTE | 2017-01-04 18:25 | NUR ---
REPORT GIVEN TO MERCED LAURENT AT NEURO ICU AT [facility].
[2017-01-04 18:26] LABS: BACTERIA,URINE 1+ (NEGATIVE); MUCUS,URINE PRESENT; RBC,URINE 0-1 /HPF (0-3); WBC,URINE 0-1 /HPF (0-5)
[2017-01-04 18:27] LABS: AMPHETAMINE SCREEN,URINE NEGATIVE; BARBITURATE SCREEN,URINE NEGATIVE; BENZODIAZEPINES SCREEN,URINE NEGATIVE; CANNABINOID SCREEN,URINE NEGATIVE; COCAINE SCREEN,URINE NEGATIVE; METHADONE SCREEN, URINE NEGATIVE; METHAMPHETAMINE SCREEN, URINE NEGATIVE; OPIATE SCREEN,URINE POSITIVE; PHENCYCLIDINE SCREEN,URINE NEGATIVE; TRICYCLIC ANTIDEPRESSANT,URINE NEGATIVE
[2017-01-04 18:28] VITALS: BP 179/77; PULSE 72; RESP 24; TEMP 98.5; O2SAT 100
--- NOTE | 2017-01-04 18:28 | NUR ---
TRANSFER PATIENT REPORT GIVEN TO [facility]. CARE ASSUMED BY EMS UNIT. PAPERWORK/CT DISC WAS GIVEN TO EMS UNIT. Addendum: 01/04/17 at 1954 by GURU IVF IVF NS FROM EMS RUNNING AT [facility].
--- NOTE | 2017-01-05 07:44 | DI ---
Indication: ITS.REASON: confusion PROCEDURE: CT HEAD W/O CONTRAST: Encounter: Initial Comparison: None Technique: Axial CT images through the head were performed without contrast. Iterative Reconstruction dose reducing techniques was utilized. FINDINGS: The ventricles are of normal size, shape, and contour for the patient's age. There are scattered areas of low attenuation in the white matter which most likely represent changes from chronic microvascular ischemia. The brainstem, cerebellum, and cerebral hemispheres otherwise have a normal morphology and CT attenuation. There is no evidence of midline displacement. No hemorrhage, signs of acute territorial stroke, mass effect, mass lesions, or edema is evident. The visualized portions of the skull base, midface, and calvarium demonstrate no abnormality. The paranasal sinuses are well aerated and free of significant disease. The tympanic and mastoid cavities appear normal. IMPRESSION: 1. Age-related atrophy and moderate deep/subcortical white matter disease without evidence for acute intracranial process or hemorrhage. MRI could be utilized to further evaluate for acute/recent infarct if clinically indicated. .
== END 2017-01-04 18:28 | disposition short-term general hospital (02) ==
LOC: ED 16:37
DX: R47.01 Aphasia (principal); R53.1 Weakness; I10 Essential (primary) hypertension; I48.91 Unspecified atrial fibrillation; Z79.01 Long term (current) use of anticoagulants; Z79.84 Long term (current) use of oral hypoglycemic drugs; Z79.899 Other long term (current) drug therapy
CPT/HCPCS: 51702; 80053; 80306; 81001; 84484; 85025; 93005

== ENCOUNTER 2017-02-02 06:06 | Day surgery (SDC) | payer MEDICARE, OTHER ==
--- NOTE | 2017-01-30 11:42 | NUR ---
PT STATUS Pt has a hx of A fib and A flutter.She reports having 9 cardioversions and 2 cardiac ablations. She reports the ablations from November 2016 "worked" and she is in sinus rhythm. There is a EKG from December in Dr Gates's chart that is NSR. I spoke with Denise Chowdhury CRNA regarding need for cardiac clearance. Pt does not have a hx of [place] or chest pain. After reading the echo report and hearing the patients history Denise Chowdhury CRNA said he did not need cardiac clearance for this pt
[2017-02-02] VITALS (10 sets, daily range): BP systolic 114–207; BP diastolic 58–100; PULSE 54–69; RESP 14–16; TEMP 97.8–98.2; O2SAT 90–99; Ht 162.6 cm; Wt 88.3 kg
[~2017-02-02] VITALS: Ht 162.6 cm; Wt 88.3 kg
[~2017-02-02 06:06] MED LIST changes: -ASCO500T9 PO; +ASCO500W7 PO; +CALC1TAB16 PO; -CALC750T4 PO; -FEXO-118 PO; -FURO40TA5 PO; +LIDOCAINE 1% (10mg/ml) 2ml SDV INJ ONE; +LR 1,000 ML IV PRN
--- OUTSIDE RECORDS SUMMARY | 2017-02-02 06:11 | XMS REPORT | Continuity of Care Document ---
Author Author [facility] Organization [facility] Address Unknown Phone Unavailable Support Name Relationship Address Phone SHOSHANA ESTRADA MD Caregiver [address] [place] [address] Unavailable MITCHEL ARGUELLO DO Caregiver [address] [place] [address] Unavailable LUIS MANUEL SAAB Next Of Kin [address] [place] [address] Insurance Providers Guarantor Ree Saab Address [address] [place] [address] Email [email or web address] Payer Medicare Policy Number [id number] Subscriber's Name Ree Saab Relationship 18 Self Payer Other A Insurance Policy Number [id number] Subscriber's Name Ree Saab Relationship 18 Self Group Number [id number] Chief Complaint and Reason for Visit Chief Complaint Altered Mental Status Reason for Visit Aphasia [id number] Problems Active Problems Medical Problem Onset Date [...] Problems Medical Problem Onset Date A-fib Unknown Aphasia Unknown Atrial fibrillation with rapid ventricular response Unknown Laceration of mouth Unknown Palpitations Unknown Right sided weakness Unknown Medications Current Home Medications Medication Dose Units Route Directions Days Qty Instructions Start Date Acetaminophen 500 Mg Tablet 1,000 Mg Oral Every 8 Hours as needed for Pain 03/04/15 Ascorbic Acid (Vitamin C) 500 Mg Tablet 500 Mg Oral As Needed Calcium Carbonate (Tums) 300 Mg Tab.chew 600 Mg Oral As Needed Dronedarone Hcl (Multaq) 400 Mg Tablet 400 Mg Oral Twice A Day Fexofenadine Hcl 180 Mg Tablet 180 Mg Oral Daily 06/15/16 Furosemide 40 Mg Tablet 40 Mg Oral Daily as needed for Prn Orders 03/04/15 Labetalol Hcl 200 Mg Tablet 200 Mg Oral Twice A Day 06/15/16 Lisinopril 10 Mg Tablet 10 Mg Oral Daily 06/15/16 Metformin Hcl (Metformin Hcl Er) 750 Mg [...] Onset Date Status Hx Substance Use No 01/04/2017 5:21pm Not Applicable Not Applicable Hx Alcohol Use No 01/04/2017 5:21pm Not Applicable Not Applicable Has the pt used tobacco in the last 12 months No 10/07/2016 2:37pm Not Applicable Not Applicable Tobacco Usage none 07/23/2015 3:23pm Not Applicable Not Applicable Query Response Start Date Stop Date Smoking Status Former smoker Hospital Discharge Instructions No hospital discharge instructions. Plan of Care Discharge Date 01/04/17 6:28pm Disposition 02 TO [facility] ACUTE CARE Condition at Discharge Stable Prescriptions See Medication Section Referrals MITCHEL ARGUELLO DO Address: [address] [place] [address] [place] [phone] Functional Status No functional status results. Allergies, Adverse Reactions, Alerts Allergen Type Severity Reaction Status Last Updated hydrocodone bit Adverse Reaction Unknown N/V Active 01/04/17 Nitroglycerin Adverse Reaction Intermediate Active 01/04/17 Niacin Adverse Reaction Unknown N/V Active 01/04/17 Diazepam Allergy Unknown Active 01/04/17 Codeine Allergy Unknown Active 01/04/17 Sulbactam Allergy Unknown Active 01/04/17 Cefoperazone Allergy Unknown Active 01/04/17 Immunizations Query Response on File Recorded Date/Time Hx Influenza Vaccination N DOES NOT TAKE 10/07/16 2:37pm Hx Pneumococcal Vaccination N DOES NOT TAKE 10/07/16 2:37pm Hx Tetanus, Diptheria, Pertussis NO SKIN DISRUPTIONS 03/04/15 3:28pm Hx Influenza Vaccination N DOES NOT TAKE 10/07/16 2:37pm Hx Tetanus, Diptheria, Pertussis NO SKIN DISRUPTIONS 03/04/15 3:28pm Influenza Vaccine Hx refuses 01/04/17 5:21pm Vital Signs Acute Vital Signs Vital Response Date/Time Temperature (Fahrenheit) 98.5 deg F (96.8 - 99.1) 01/04/2017 6:28pm Temperature (Calculated Celsius) 36.30045 degrees C (36.0 - 37.3) 01/04/2017 6:28pm Pulse Rate (adult) 72 bpm (60 - 100) 01/04/2017 6:28pm Respiratory Rate 24 breaths/min (10 - 20) 01/04/2017 6:28pm O2 Sat by Pulse Oximetry 100 % (90 - 100) 01/04/2017 6:28pm Oxygen Delivery Method Nasal Cannula 10/07/2016 4:15pm Oxygen Delivery Method Room Air 10/07/2016 5:15pm Oxygen Flow Rate 2.00 L/min 10/07/2016 4:15pm Blood Pressure 179/77 mm Hg 01/04/2017 6:28pm Blood Pressure Source Automatic Cuff 10/07/2016 5:15pm Height (Feet) 5 feet 01/04/2017 4:45pm Height (Inches) 7.00 inches 01/04/2017 4:45pm Weight (Kilograms) 89.600 kg 01/04/2017 4:45pm Body Mass Index (BMI) 30.0 01/04/2017 4:45pm Results Laboratory Results Test Name Result Units Flags Reference Collection Date/Time Result Date/ Time Comments Magnesium Level 1.9 MG/DL 1.6-2.3 10/07/2016 2:44pm 10/07/2016 3:20pm White Blood Count 7.7 T/MM3 4.5-11.0 01/04/2017 4:48pm 01/04/2017 5: 04pm Red Blood Count 4.83 M/MM3 4.00-5.20 01/04/2017 4:48pm 01/04/2017 5: 04pm Hemoglobin 12.3 GM/DL 12-16 01/04/2017 4:48pm 01/04/2017 5:04pm Hematocrit 39.1 % 36-46 01/04/2017 4:48pm 01/04/2017 5:04pm Mean Corpuscular Volume 81.0 UM3 80-100 01/04/2017 4:48pm 01/04/2017 5: 04pm Mean Corpuscular Hemoglobin 25.5 UUG L 26-34 01/04/2017 4:48pm 2016 5:04pm Mean Corpuscular Hemoglobin Concent 31.5 GM/DL 31-37 01/04/2017 4:48pm 01/04/2017 5:04pm RDW Standard Deviation 45.7 FL 36.9-50.2 01/04/2017 4:48pm 01/04/2017 5 :04pm Platelet Count 187 T/MM3 130-400 01/04/2017 4:48pm 01/04/2017 5:04pm Mean Platelet Volume 12.1 UM3 9.4-12.4 01/04/2017 4:48pm 01/04/2017 5: 04pm Neutrophils (%) (Auto) 75.6 % H 33-66 01/04/2017 4:48pm 01/04/2017 5: 04pm Lymphocytes (%) (Auto) 11.2 % L 23-45 01/04/2017 4:48pm 01/04/2017 5: 04pm Monocytes (%) (Auto) 11.7 % H 0-9.0 01/04/2017 4:48pm 01/04/2017 5:04pm Eosinophils (%) (Auto) 1.0 % 0-4 01/04/2017 4:48pm 01/04/2017 5:04pm Basophils (%) (Auto) 0.1 % 0-2 01/04/2017 4:48pm 01/04/2017 5:04pm Immature Granulocyte % (Auto) 0.4 % 0.0-0.5 01/04/2017 4:48pm 2016 5:04pm Absolute Neutrophils (auto) 5.8 T/MM3 1.8-7.7 01/04/2017 4:48pm 2016 5:04pm Absolute Lymphocytes (auto) 0.9 T/MM3 L 1-4.8 01/04/2017 4:48pm 2016 5:04pm Absolute Monocytes (auto) 0.9 T/MM3 H 0-0.8 01/04/2017 4:48pm 2016 5:04pm Absolute Eosinophils (auto) 0.1 T/MM3 0-0.5 01/04/2017 4:48pm 2016 5:04pm Absolute Basophils (auto) 0.0 T/MM3 0-0.2 01/04/2017 4:48pm 01/04/2017 5:04pm Absolute Immature Granulocyte (auto 0.03 T/MM3 0.00-0.03 01/04/2017 4: 48pm 01/04/2017 5:04pm Icterus Index < 2 0-7 01/04/2017 4:48pm 01/04/2017 5:03pm Chemistry Specimen Hemolysis < 15 0-25 01/04/2017 4:48pm 01/04/2017 5 :03pm 0-25: Specimen Exhibited No Hemolysis. Turbidity < 20 0-20 01/04/2017 4:48pm 01/04/2017 5:03pm Sodium Level 142 MEQ/L 134-144 01/04/2017 4:48pm 01/04/2017 5:03pm Potassium Level 3.9 MEQ/L 3.6-5 01/04/2017 4:48pm 01/04/2017 5:03pm Chloride Level 102 MEQ/L 98-107 01/04/2017 4:48pm 01/04/2017 5:03pm Carbon Dioxide Level 24 MEQ/L 22-30 01/04/2017 4:48pm 01/04/2017 5: 03pm Anion Gap 16 MEQ/L H 5-15 01/04/2017 4:48pm 01/04/2017 5:03pm Blood Urea Nitrogen 24.0 MG/DL H 7-17 01/04/2017 4:48pm 01/04/2017 5: 03pm Creatinine 1.6 MG/DL H 0.7-1.2 01/04/2017 4:48pm 01/04/2017 5:03pm BUN/Creatinine Ratio 15 RATIO 6-26 01/04/2017 4:48pm 01/04/2017 5:03pm Glomerular Filtration Rate Calc 32 01/04/2017 4:48pm 01/04/2017 5: 03pm Glucose Level 101 MG/DL 65-110 01/04/2017 4:48pm 01/04/2017 5:03pm Calculated Osmolality 277 MOSM/KG 261-280 01/04/2017 4:48pm 01/04/2017 5:03pm Calcium Level 9.8 MG/DL 8.4-10.2 01/04/2017 4:48pm 01/04/2017 5:03pm Total Bilirubin 1.10 MG/DL 0.20-1.30 01/04/2017 4:48pm 01/04/2017 5: 03pm Alkaline Phosphatase 114 U/L 38-126 01/04/2017 4:48pm 01/04/2017 5: 03pm Total Protein 7.5 G/DL 6.3-8.2 01/04/2017 4:48pm 01/04/2017 5:03pm Albumin 4.5 G/DL 3.5-5.0 01/04/2017 4:48pm 01/04/2017 5:03pm Globulin 3.0 G/DL 2.4-3.6 01/04/2017 4:48pm 01/04/2017 5:03pm Albumin/Globulin Ratio 1.5 RATIO 1.1-2.2 01/04/2017 4:48pm 01/04/2017 5 :03pm Aspartate Amino Transf (AST/SGOT) 26 U/L 14-36 01/04/2017 4:48pm 2016 5:03pm Alanine Aminotransferase (ALT/SGPT) 21 U/L 9-52 01/04/2017 4:48pm 01/04 5:03pm Troponin I < 0.012 ng/ml 0-0.12 01/04/2017 4:48pm 01/04/2017 5:14pm Troponin values with a difference of 55% increase from orginal troponin value represent a true biological DELTA value. (%increase Calc=Orginal Troponin value, divided by subsequent Troponin value, multiplied by 100) Urine Collection Type CLEANCATCH-MIDSTREAM 01/04/2017 5:45pm 2016 6:14pm Urine Color YELLOW YELLOW 01/04/2017 5:45pm 01/04/2017 6:14pm Urine Turbidity CLEAR CLEAR 01/04/2017 5:45pm 01/04/2017 6:14pm Urine Specific [place] 1.020 1.015-1.025 01/04/2017 5:45pm 2016 6:14pm Urine pH 5.5 5.0-8.0 01/04/2017 5:45pm 01/04/2017 6:14pm Urine Leukocyte Esterase NEGATIVE NEGATIVE 01/04/2017 5:45pm 2016 6:14pm Urine Nitrite NEGATIVE NEGATIVE 01/04/2017 5:45pm 01/04/2017 6:14pm Urine Protein 1+ A NEGATIVE 01/04/2017 5:45pm 01/04/2017 6:14pm Urine Glucose (UA) NEGATIVE NEGATIVE 01/04/2017 5:45pm 01/04/2017 6: 14pm Urine Ketones TRACE A NEGATIVE 01/04/2017 5:45pm 01/04/2017 6:14pm Urine Urobilinogen 0.2 EU/DL NORMAL 01/04/2017 5:45pm 01/04/2017 6: 14pm Urine Bilirubin 1+ A NEGATIVE 01/04/2017 5:45pm 01/04/2017 6:14pm Urine Blood NEGATIVE NEGATIVE 01/04/2017 5:45pm 01/04/2017 6:14pm Urine WBC 0-1 /HPF 0-5 01/04/2017 5:45pm 01/04/2017 6:26pm Urine RBC 0-1 /HPF 0-3 01/04/2017 5:45pm 01/04/2017 6:26pm Urine Squamous Epithelial Cells 5-10 01/04/2017 5:45pm 01/04/2017 6 :26pm Urine Bacteria 1+ H NEGATIVE 01/04/2017 5:45pm 01/04/2017 6:26pm Urine Amorphous Urates FEW 01/04/2017 5:45pm 01/04/2017 6:26pm Urine Mucus PRESENT 01/04/2017 5:45pm 01/04/2017 6:26pm Urine Hyaline Casts 1-3 /LPF 01/04/2017 5:45pm 01/04/2017 6:26pm Urine Culture Indicated CULT NOT INDICATED 01/04/2017 5:45pm 2016 6:26pm Procedures Procedure Status Date Provider(s) Comprehen metabolic panel Completed 10/07/16 Assay of magnesium Completed 10/07/16 Cardioversion electric ext Completed 10/07/16 ANA VASQUEZ MD Electrocardiogram tracing Completed 10/07/16 171350"INJECTION, MIDAZOLAM HYDROCHLORIDE, PER 1 MG" Completed 10/07/16 [id number]"INJECTION, FENTANYL CITRATE, 0.1 MG" Completed 10/07/16 Encounters Encounter Location Arrival/Admit Date Discharge/Depart Date Attending Provider Departed Emergency Room [facility] 01/04/17 4:37pm 01/04/17 6: 28pm SHOSHANA ESTRADA MD Departed Clinic [facility] 10/07/16 1:56pm 10/07/16 7:00pm ANA VASQUEZ MD Recent Diagnosis
--- NOTE | 2017-02-02 07:33 | ANESPREOP ---
Anesthesia Record Date and Time DATE: 02/02/17 TIME: 07:31 Pre-Op Diagnosis abn. pet scan Proposed Surgical Procedure fine needle aspiration of thyroid; bx of left inguinal lymph node Allergies: Coded Allergies: cefoperazone (Unverified Allergy, Unknown, 02/02/17) codeine (Verified Allergy, Unknown, 02/02/17) diazepam (Verified Allergy, Unknown, 02/02/17) sulbactam (Unverified Allergy, Unknown, 02/02/17) nitroglycerin (Verified Adverse Reaction, Intermediate, 02/02/17) MIGRAINES hydrocodone bit (Verified Adverse Reaction, Unknown, N/V, 02/02/17) niacin (Verified Adverse Reaction, Unknown, N/V, 02/02/17) Ht/Wt/BMI Height: 5 ' 4.00 " Weight: 88.300 kg BMI: 33.4 kg/m2 Vital Signs Date Time Temp Pulse Resp B/P Pulse Ox O2 Delivery O2 Flow Rate FiO2 02/02/17 06:24 97.8 62 14 207/100 95 Room Air Medications Inpatient Medications Current Medications Medications (Trade) Dose Ordered Sig/Agatha Start Time Stop Time Status Last Admin Dose Admin Lactated Ringer's (Lactated Ringers) 1,000 ml @ 50 mls/hr Q20H PRN 02/02/17 06:00 02/02/17 06:54 50 MLS/HR Acetaminophen (Acetaminophen) 500 Mg Tablet, 1,000 MG PO Q8H PRN for PAIN, ( Reported) Last Taken: on Unknown Date & Time Ascorbic Acid/Ascorbate Sodium (Vitamin C 500 mg Wafer) 500 Mg Wafer, 1 TAB PO DAILY, (Reported) Last Taken: on 01/31/17 2100 Calcium Carbonate (Calcium Carbonate) 500 Mg Tablet, 2 TAB PO DAILY, (Reported) Last Taken: on Unknown Date & Time Dronedarone HCl (Multaq) 400 Mg Tablet, 400 MG PO BID, (Reported) Last Taken: on 02/02/17 0530 Labetalol HCl (Labetalol HCl) 200 Mg Tablet, 200 MG PO BID, (Reported) Last Taken: on 02/02/17 0530 Lisinopril (Lisinopril) 10 Mg Tablet, 10 MG PO DAILY, (Reported) Last Taken: on 02/01/17 0700 Metformin HCl (Metformin HCl ER) 750 Mg Tablet , 750 MG PO ACS, (Reported) Last Taken: on 01/31/17 1700 Omeprazole Magnesium (Prilosec Otc) 20 Mg Tablet.dr, 20 MG PO DAILY, (Reported) Last Taken: on 02/01/17 1900 Rivaroxaban (Xarelto) 20 Mg Tablet, 20 MG PO HS , (Reported) Last Taken: on 01/30/17 1700 Discontinued Medications Ascorbic Acid (Vitamin C) 500 Mg Tablet, 500 MG PO PRN, (Reported) Calcium Carbonate (Tums) 300 Mg Tab.chew, 600 MG PO PRN, (Reported) Currently on Beta Piper: Yes Beta Piper Last Taken: labetolol at 0530 on 02/02/17 Medical/Surgical History Anesthesia PMH: Reports: *Diabetes (TYPE II), *Dyspnea (when in atrial fib), * Hypertension, Anesthesia Reactions (NO AIRWAY ISSUES KNOWN/ nausea), Arthritis ( knees & hands), CHF ("due to A Fib"), Cardiac Arrythmia (A-FIB), Obesity, Pneumonia (2 years ago), Reflux, Thyroid Disease (possible thyroid ca), Denies: *Angina, *MD, Asthma, Blood Transfusion Reac, COPD, CVA/Stroke/TIA, Cancer, Clotting Problems (ON XARELTO), Deep Vein Thrombosis, Glaucoma, Hepatitis, Hiatal Hernia, Malignant Hyperthermia, Pacemaker, Renal Disease, Rheumatic Fever , Seizures, Sleep Apnea, Tuberculosis Smoking Status: Never smoker Has pt. smoked today?: No Use Chewing Tobacco?: No Second Hand Exposure: No Substance Use Type: does not use Substance last used: unknown Alcohol Intake: none Last Drink: unknown HX of Last Menstrual Period: postmenopause Past Surgical History Orthopedic Surgeries: No Abdominal Surgeries: Yes - LAPAROSCOPY Genitourinary Surgeries: Yes - cysto/dil Cardiac Surgeries: Yes - ABLATIONS, MULTIPLE POINTS, PREVIOUS CARDIOVERSION Endocrine Surgeries: No Reproductive Surgeries: Yes - FIBROID TUMOR SCRAPED 2016 Neurological Surgeries: No Ear Surgeries: No Nose Surgeries: No Throat Surgeries: No Other Surgeries: Yes - colonoscopy Anesthesia Adverse Reactions: FOUND nausea and vomiting Family Hx of Anesthesia Advers: none Hx of Motion Sickness: Yes Pertinent Findings EKG Rhythm: Atrial Fibrillation Physical Exam Respiratory: Bilat breath sounds equal, Lungs clear Cardiovascular: FOUND Regular rate, rhythm, FOUND No murmur Airway Assessment Mallampati Score: II TMD: 3 Fingerbreadths Neck Extension: Good Overall Assessment: No Airway Concerns ASA: 3 Plan Anesthesia Plan: TIVA Discussion Discussed risks/options/alternatives of anesthesia and questions answered. Patient consents. Nursing pain assessment noted. Attestation Statement Prior to the delivery of any anesthetic medication, I examined the patient, developed the plan, obtained the patient's consent and discussed the risk and benefits of the procedure with the patient/guardian. TONNY EPSTEIN INSTRUCTOR TECHNICAL TRAINING February 02, 2017 07:33
[2017-02-02] MEDS ORDERED: SCOPOLAMINE 1.5 MG PATCH TD ONE (07:45)
[2017-02-02] MEDS ORDERED: BUPIVACAINE 0.25%/EPI 1:200,000 30ml SDV ONE (07:46)
[2017-02-02] MEDS ORDERED: GLYCOPYRROLATE 0.4mg/2ml INJECTION ONE (07:50)
[2017-02-02] MEDS ORDERED: ONDANSETRON 4mg/2ml INJECTION ONE (07:50)
[2017-02-02] MEDS ORDERED: PROPOFOL 500mg 50 ML IV ONE ×2 (07:50→08:40)
[2017-02-02] MEDS ORDERED: LIDOCAINE 2% (20mg/ml) 5ml PF SDV ONE (07:50)
[2017-02-02] MEDS ORDERED: FENTANYL 100mcg/2ml INJECTION ONE ×2 (07:59→08:59)
[2017-02-02] MEDS ORDERED: PROPOFOL 200mg 20 ML IV ONE (09:25)
[2017-02-02] MEDS ORDERED: RIVA20TA PO (09:40)
--- NOTE | 2017-02-02 09:56 | DI ---
Indication: ITS.REASON thyroid nodules PROCEDURE: US BIOPSY, THYROID: Encounter: Initial Comparison: None Technique/findings/ Impression: Grayscale and color Doppler sonographic imaging of the thyroid gland was performed in order to assist Dr. Moses with fine-needle aspiration of a thyroid nodule in each of the patient's thyroid lobes. There is a large heterogeneous nodule in the right lobe with internal vascularity measuring up to 2.2 cm in diameter and a smaller mildly heterogeneous nodule in the left lobe measuring up to 1.8 cm in diameter. .
[2017-02-02] MEDS: MORPHINE SULFATE 10 MG SYRINGE IV PRN ×2 (10:00→10:13)
[2017-02-02] MEDS ORDERED: ACETAMINOPHEN 500 MG TABLET PO ONE (10:00)
--- NOTE | 2017-02-02 10:19 | NUR ---
POST OP APPT APPT MADE FOR 02/17/17 @ 1:[address] QUESADA OFFICE.
--- NOTE | 2017-02-02 10:30 | ANESPO ---
Post-Op Note Date 02/02/17 Time: 10:29 Status Pt Participated in Evaluation: Pt participated in person Vital Signs Date Time Temp Pulse Resp B/P Pulse Ox O2 Delivery O2 Flow Rate FiO2 02/02/17 10:15 57 14 151/71 96 Nasal Cannula 1.00 02/02/17 09:39 98.2 Respiratory Function: Airway patent, Regular respirations Mental Status: Alert/oriented Pain Level Intensity: 5 Unable to Assess Pain Due To: Medicated/Sleeping Hydration: Taking po fluids, IV infusing Complications during Recovery None apparent Post-Anesthesia Notes pt. doing well Follow-Up Instructions Instructions Per Surgeon Additional Information none TONNY EPSTEIN CRNA February 02, 2017 10:30
--- NOTE | 2017-02-02 12:13 | OPNOTEF ---
DATE OF SERVICE 02/02/2017 SURGEON Cuate Moses MD PREOPERATIVE DIAGNOSIS Abnormal PET scan revealing areas of hypermetabolism including thyroid and left inguinal region, mass involving left inguinal region, personal history for abnormal thyroid sonogram. POSTOPERATIVE DIAGNOSIS Abnormal PET scan revealing areas of hypermetabolism including thyroid and left inguinal region, mass involving left inguinal region, personal history for abnormal thyroid sonogram. PROCEDURE Fine-needle aspiration of right and left thyroid lobe under sonographic guidance, excisional biopsy of deep left inguinal lymph node. ANESTHESIA TIVA/local BRIEF HISTORY/INDICATIONS Mrs. Edgar is a 66-year-old female who actually was found to have multiple abnormalities "serendipitously". The patient had developed some slurring of her speech after taking a fair amount of narcotics as a result of some left inguinal discomfort. The patient presented to the emergency room and had underwent a chest x-ray revealing a questionable lesion within her lung. The patient subsequently underwent a CT scan of her chest that did reveal a spiculated mass suspicious for lung carcinoma. Patient subsequently underwent further metastatic workup including a PET scan. Upon PET scan, she was found to have a suspicious area of hypermetabolism which corresponded with the lung mass, again suggestive of underlying lung cancer. In addition to this, however, she was found to have other areas of hypermetabolism within the left axilla and within the left inguinal region as well as within the mediastinum. Findings were also consistent with that of a probable lymphoma. Additionally area of intense hypermetabolism was also noted within the right thyroid lobe. The patient subsequently underwent thyroid sonogram that did reveal multiple nodularities within the right thyroid lobe. Additionally within the left thyroid lobe, there was a more central nodularity that did contain some calcifications. This was not found to have as much hypermetabolism on PET scan involving the left thyroid lobe but sonographically also appeared somewhat concerning. As a result of the above indications, it was recommended to the patient she should undergo a fine-needle aspiration of the thyroid as well as a left inguinal lymph node biopsy. Patient presents today to undergo these procedures. For completeness please refer to notes included in the patient's chart. DESCRIPTION OF PROCEDURE After informed consent was obtained, the patient was brought to the operative suite, placed on the table in supine fashion. After establishment of total intravenous anesthesia, a formal time-out was then completed. Next, the patient was placed in somewhat of a "beach-chair position". radiography technician was in the operative suite and she did place the ultrasound transducer upon the right lateral neck. One could see the trachea midline and attention was then focused towards the right thyroid lobe. Under sonographic guidance a 22-gauge needle as well as a 25-gauge needle was introduced into the central portion of the thyroid. In fact, three separate passes were made and slides were subsequently also made by the labor relations analyst. Next the transducer was then placed upon the left lateral neck in a supraclavicular fashion. One could see multiple calcifications with an associated nodularity within the central portion of left thyroid lobe. Under sonographic guidance, a 25-gauge needle was introduced x2 within the midportion of the thyroid lobe. One could ascertain that the nodule itself was fairly firm as one could see the needle passing into the nodule itself. Cellular contents were then placed upon slides for cytologic evaluation. The patient tolerated this first portion of the procedure without difficulty. Next, the left inguinal region was then prepped and draped in sterile fashion. A 0.25% Marcaine with epinephrine was injected overlying the proposed incision site. A 6 cm incision was then made from just beneath the left inguinal crease down upon to the mid anterior thigh overlying the palpable abnormality. Dissection was carried down into the deep subcuticular tissues. The patient was then found to have a large lymphomatous appearing mass that was on the order about 4-5 cm in diameter. I elected to go ahead and proceed with excision of this mass in almost its entirety. Vessels entering into the lymphomatous mass were sequentially divided between hemostats and ligated with 3-0 and 0 Vicryl ties. There was a portion of the lymphomatous mass that was located medially upon the mass that did course further deeper in towards the inguinal ligament. I elected to go ahead and divide this portion of the mass under direct visualization. Mass was sequentially divided between right angle clamps and ligated with 0 Vicryl ties. [id number] sutures of 3-0 Vicryl were also placed upon the remaining portion of the mass to provide hemostasis. Next about 90-95% of the mass was able to be completely dissected free was then passed off the table as a surgical specimen. Hemostasis was obtained within the wound. Wound was then irrigated. The wound was then closed in layers with 3-0 Vicryl. Skin itself was then closed in a subcuticular fashion with 4-0 Monocryl. Dermabond was placed overlying the incision. The patient is in the process of awakening from her anesthetic and will be sent back to the recovery room once deemed in stable condition. HEATHER
== END 2017-02-02 11:04 | disposition home or self-care (01) ==
LOC: SCU 06:06
PROVIDERS: ATTEND Surgery
DX: C82.05 Follicular lymphoma grade I, lymph nodes of inguinal region and lower limb (principal); E04.2 Nontoxic multinodular goiter; R93.8 Abnormal findings on diagnostic imaging of other specified body structures; Z79.84 Long term (current) use of oral hypoglycemic drugs
CPT/HCPCS: 38500; 60100; 76942; 82948; 88173; 88305; A9270; J2405; J2704; J3010; J7120; 88307; 88331; 88341; 88342

== ENCOUNTER 2017-11-09 01:27 | Inpatient (IN) ==
[2017-11-09] MEDS ORDERED: NS 1,000 ML IV ONE (01:45)
[2017-11-09] MEDS: SALINE FLUSH 10ml SYRINGE IVF PRN (01:45)
--- NOTE | 2017-11-09 01:52 | Emergency Department Report ---
GI Bleed HPI - General Stated complaint: rectal bleed Time Seen by Provider: 11/09/17 01:35 Source: patient, EMS Mode of arrival: EMS Limitations: no limitations - History of Present Illness HPI Narrative: Patient was at home, when she began with a very soft diarrhea stools around midnight tonight. Over the next hour and a half the patient progressed to having multiple diarrhea stools each one having greater and greater amounts of blood. Patient took some Pepto-Bismol and seemed to gain some relief, that she had a large "explosive" diarrhea stool all over her bathroom floor, that had a large amount of blood in it. Patient has a history of left pulmonary lymphoma, and less than one month ago had left lower lobectomy at the [facility]. Prior to that she had had chemotherapy for approximate 6 months, with good reduction and cancer size, and she was told that the lobectomy got all of the cancer out. Patient is also taking his overall toe after atrial fibrillation with cardiac ablation approximately one year ago. Patient had been on Coumadin prior to ablation, but after ablation she was placed on his overall toe and has had good results until now. Patient occasionally will have a small amount of blood in her stool, but has never had anything like this. Patient has no history of diverticulosis or ulcers, and currently has no abdominal pain, nausea, or cramps. - Related Data Home Medications Medication Instructions Recorded Confirmed Omeprazole Magnesium [Prilosec Otc] 20 mg PO DAILY #0 01/10/10 11/09/17 Dronedarone [Multaq] 400 mg PO BID #0 12/11/15 11/09/17 Labetalol HCl 1.5 mg PO BID #0 06/15/16 11/09/17 Lisinopril 10 mg PO DAILY #0 06/15/16 11/09/17 Furosemide [Lasix] 1 tab PO DAILY 11/09/17 11/09/17 Previous Rx's Medication Instructions Recorded Rivaroxaban [Xarelto] 20 mg PO HS #1 02/27/17 Allergies Allergy/AdvReac Type Severity Reaction Status Date / Time cefoperazone Allergy Unknown Verified 11/09/17 02:08 codeine Allergy Unknown Verified 11/09/17 02:08 diazepam Allergy Unknown Verified 11/09/17 02:08 sulbactam Allergy Unknown Verified 11/09/17 02:08 nitroglycerin AdvReac Intermediate Verified 11/09/17 02:08 hydrocodone AdvReac Unknown Nausea and Verified 11/09/17 02:08 Vomiting niacin AdvReac Unknown Nausea and Verified 11/09/17 02:08 Vomiting Review of Systems All systems: reviewed and negative except as stated PFSH Patient Stated Medical History Cardiac Arrhythmia Yes: AFIB Hypertension Yes Sleep Apnea Yes Other Respiratory Yes: 09/23 LEFT LUNG CA/REMOVED 10/08 Diabetes Mellitus Type 1 Yes Diabetes Mellitus Type 2 Yes Other GI Yes: CURRENT BLOOD/DIARRHEA Hx Kidney Stones Yes: hx. Clotting Problems Yes: XARALTO Osteoarthritis Yes: knee Anesthesia Reactions Yes Depression Yes Clinic Medical History (Last Updated 08/11/17 @ 13:58 by Soheila Jones APRN) Atrial fibrillation (Acute Medical) Diabetes 1.5, managed as type 2 (Acute Medical) GERD (gastroesophageal reflux disease) (Acute Medical) HTN (hypertension) (Acute Medical) Lymphoma (Acute Medical) Surgical History: cardiac ablation 11/2016. Port-a-cath 02/27/2017. Excision inguinal lymph node - lymphoma 02/02/2017. Left lower lobectomy, September 2017 Family History: Family History (Last Updated 08/11/17 @ 14:04 by Soheila Jones APRN) Father CAD (coronary atherosclerotic disease) Diabetes Heart disease Mother Heart disease Sister Ovarian cancer - Social History Smoking status: Former smoker Substance use type: does not use Alcohol intake frequency: does not drink Physical Exam - Limitations Limitations: no limitations - General General appearance: alert, anxious - Normal Exams: Head:: Normocephalic without trauma Eyes:: Pupils are PERRLA w/ EOMI, No scleral icterus, irritation, or foreign bodies noted ENMT:: No facial trauma, nasal exudates, pharyngeal erythema, or exudates are noted Neck:: Full range of motion, without adenopathy, JVD, bruits or thyromegaly Chest/Respirations:: Clear all ruiz, with good airflow, and symmetry bilaterally Cardiovascular:: Regular rate and rhythm, without murmur or gallop, Pulses 2+ all extremities, capillary refill, <2 seconds all extremities Lymphatic:: No lymphadenopathy, or lymphedema noted Musculoskeletal:: No tenderness, or deformity noted, good range of motion, all extremities Integumentary:: No rashes, hives, or bruising noted, hair and nails, without abnormality Neurological:: Patient is alert, and oriented, cranial nerves, motor/sensory/ cerebellar, exams w/o gross deficits, to observation Psychiatric:: Patient exhibits, appropriate attention, emotion and affect - Abdominal Exam Abdominal exam: Present: soft, normal bowel sounds. Absent: distention, tenderness, guarding, rebound, rigidity - Rectal Exam Rectal exam: Present: heme (+) stool, bloody stool (dark bloody stool,) Course Vital Signs Temperature 98.0 F 11/09/17 01:30 Pulse Rate 78 11/09/17 01:30 Respiratory Rate 20 11/09/17 01:30 Blood Pressure 182/84 H 11/09/17 01:30 Pulse Oximetry 97 11/09/17 01:30 Temperature 98.2 F 11/09/17 02:23 Pulse Rate 82 11/09/17 02:23 Respiratory Rate 16 11/09/17 02:23 Blood Pressure 163/80 H 11/09/17 02:23 Pulse Oximetry 97 11/09/17 02:23 GI Bleed - MDM Narrative Medical decision making narrative: Patient is given 1 L normal saline IV fluid bolus, but declines medication for nausea or pain at this time CBC -mild decreased hemoglobin CMP/L - normal Case is discussed with Dr. Sosa who will admit the patient for admission for GI bleed - Lab Data Result diagrams: 11/09/17 01:45 11/09/17 01:45 Lab Results 11/09/17 11/09/17 Range/Units 01:45 01:45 WBC 5.4 (4.5-11.0) T/MM3 RBC 3.63 L (4.00-5.20) M/MM3 Hgb 9.2 L (12-16) GM/DL Hct 30.3 L (36-46) % MCV 83.5 (80-100) UM3 MCH 25.3 L (26-34) UUG MCHC 30.4 L (31-37) GM/DL RDW Std Deviation 40.5 (36.9-50.2) FL Plt Count 230 (130-400) T/MM3 MPV 10.6 (9.4-12.4) UM3 Immature Gran % (Auto) 0.2 (0.0-0.5) % Neut % (Auto) 80.9 H (33-66) % Lymph % (Auto) 7.4 L (23-45) % [place] % (Auto) 7.2 (0-9.0) % Eos % (Auto) 4.1 H (0-4) % Baso % (Auto) 0.2 (0-2) % Neut # (Auto) 4.4 (1.8-7.7) T/MM3 Lymph # (Auto) 0.4 L (1-4.8) T/MM3 [place] # (Auto) 0.4 (0-0.8) T/MM3 Eos # (Auto) 0.2 (0-0.5) T/MM3 Baso # (Auto) 0.0 (0-0.2) T/MM3 Abs Immat Gran (auto) 0.01 (0.00-0.03) T/MM3 Turbidity < 20 (0-20) Sodium 145 H (134-144) MEQ/L Potassium 3.9 (3.6-5) MEQ/L Chloride 105 (98-107) MEQ/L Carbon Dioxide 28 (22-30) MEQ/L Anion Gap 12 (5-15) MEQ/L BUN 20.0 H (7-17) MG/DL Creatinine 1.0 (0.7-1.2) MG/DL GFR Calculation 55 BUN/Creatinine Ratio 20 (6-26) RATIO Glucose 124 H (65-110) MG/DL Calculated Osmolality 283 H (261-280) MOSM/KG Calcium 9.1 (8.4-10.2) MG/DL Total Bilirubin 0.20 (0.20-1.30) MG/DL Conjugated Bilirubin 0.00 (0.00-0.30) MG/DL Unconjugated Bilirubin 0.00 (0.00-1.1) MG/DL Icterus Index < 2 (0-7) AST 13 L (14-36) U/L ALT 19 (9-52) U/L Alkaline Phosphatase 101 (38-126) U/L Total Protein 6.6 (6.3-8.2) G/DL Albumin 4.0 (3.5-5.0) G/DL Globulin 2.6 (2.4-3.6) G/DL Albumin/Globulin Ratio 1.5 (1.1-2.2) RATIO Lipase 226 (23-300) U/L Specimen Hemolysis < 15 (0-25) Disposition Clinical Impression: GI bleed Qualifiers: GI bleed type/associated pathology: unspecified gastrointestinal hemorrhage type Qualified Code(s): K92.2 - Gastrointestinal hemorrhage, unspecified Disposition: 02 To [facility] [place] Care Condition: Stable Prescriptions: No Action Lisinopril 10 mg PO DAILY #0 Rivaroxaban [Xarelto] 20 mg PO HS #1 Omeprazole Magnesium [Prilosec Otc] 20 mg PO DAILY #0 Dronedarone [Multaq] 400 mg PO BID #0 Labetalol HCl 1.5 mg PO BID #0 Furosemide [Lasix] 1 tab PO DAILY Referrals: Vinod Vang MD [Family Provider] - - Seen By: physician
[2017-11-09] MEDS ORDERED: PANTOPRAZOLE 40 MG INJECTION IVP ONE (02:17)
[2017-11-09] MEDS ORDERED: Oxycodone/Acetaminophen 5/325 1 TAB PO ONE (02:52)
[2017-11-09] MEDS ORDERED: PROCHLORPERAZINE 10 MG TABLET PO ONE ×2 (02:52→13:26)
[2017-11-09] MEDS ORDERED: ONDANSETRON 4 MG/2 ML INJECTION IVP PRN (04:13)
[2017-11-09] MEDS ORDERED: LR 1,000 ML IV SCH (04:13)
[2017-11-09] MEDS ORDERED: MORPHINE SULFATE 4mg INJECTION IVP PRN (04:13)
[2017-11-09] MEDS ORDERED: ALBUTEROL 2.5mg/3ml (0.083%) NEB IPPB PRN (04:25)
[2017-11-09 04:28] VITALS: BMI 33.5
--- NOTE | 2017-11-09 04:30 | History & Physical Report ---
History of Present Illness Date: 11/09/17 Chief complaint: blood in stool HPI: Patient seen via telemedicine with nursing assistance on 11/09/2017. Ms. Edgar is a 67yo woman with h/o lymphoma 12/2016 s/p chemo and then 09/2017 LLLobectomy for NSCLC, afib on Xarelto but now s/p ablation and was to see Enzo 11/11/2017 to discuss need for further anticoagulation and no other DVT/ PE hx. Notes GERD but no other GI bleed history until tonight with 5 stools over 4 hours starting at [place] with no nausea or abd pain. Had colonoscopy 5-7 years ago and was to see Aurelia next month for endoscopy eval. No syncope, fevers, chills, pain currently. Son with her says mentating fine. Review of Systems All systems PM: 10-point ROS was reviewed, no additional remarkable complaints except Past Medical History Patient Stated Medical History Cardiac Arrhythmia Yes: AFIB Hypertension Yes Sleep Apnea Yes Other Respiratory Yes: 09/23 LEFT LUNG CA/REMOVED 10/08 Diabetes Mellitus Type 2 Yes: Bordline, diet controlled. Other GI Yes: CURRENT BLOOD/DIARRHEA Hx Kidney Stones Yes: hx. Hx Urinary Tract Infection Yes Clotting Problems Yes: XARALTO Osteoarthritis Yes: knee Anesthesia Reactions Yes Depression Yes Clinic Medical History (Last Updated 08/11/17 @ 13:58 by Soheila Jones APRN) Atrial fibrillation (Acute Medical) Diabetes 1.5, managed as type 2 (Acute Medical) GERD (gastroesophageal reflux disease) (Acute Medical) HTN (hypertension) (Acute Medical) Lymphoma (Acute Medical) Surgical History: cardiac ablation 11/2016. Port-a-cath 02/27/2017. Excision inguinal lymph node - lymphoma 02/02/2017. Left lower lobectomy, September 2017 Family History: Family History (Last Updated 08/11/17 @ 14:04 by Soheila Jones APRN) Father CAD (coronary atherosclerotic disease) Diabetes Heart disease Mother Heart disease Sister Ovarian cancer Family History Updates: mother 08/2017 CHF and father of CHF previously - Social History Smoking status: Former smoker Substance use type: does not use Medications Home Medications Medication Instructions Recorded Confirmed Type Omeprazole Magnesium [Prilosec Otc] 20 mg PO DAILY #0 01/10/10 11/09/17 History Dronedarone [Multaq] 400 mg PO BID #0 12/11/15 11/09/17 History Labetalol HCl 1.5 mg PO BID #0 06/15/16 11/09/17 History Lisinopril 10 mg PO DAILY #0 06/15/16 11/09/17 History Furosemide [Lasix] 1 tab PO DAILY 11/09/17 11/09/17 History Oxycodone/Apap 10/325 [Percocet 1 tab PO Q6HR 11/09/17 11/09/17 History 10/325] Prochlorperazine Maleate 1 tab PO Q6HR PRN 11/09/17 11/09/17 History [Compazine] Allergies Allergy/AdvReac Type Severity Reaction Status Date / Time cefoperazone Allergy Unknown Verified 11/09/17 02:08 codeine Allergy Unknown Verified 11/09/17 02:08 diazepam Allergy Unknown Verified 11/09/17 02:08 sulbactam Allergy Unknown Verified 11/09/17 02:08 nitroglycerin AdvReac Intermediate Verified 11/09/17 02:08 hydrocodone AdvReac Unknown Nausea and Verified 11/09/17 02:08 Vomiting niacin AdvReac Unknown Nausea and Verified 11/09/17 02:08 Vomiting Exam Vital Signs: Temperature 98.2 F 11/09/17 02:23 Pulse Rate 85 11/09/17 02:58 Respiratory Rate 16 11/09/17 02:58 Blood Pressure 179/77 H 11/09/17 02:58 Pulse Oximetry 96 11/09/17 02:58 Telemetry Rhythm: Sinus Rhythm - Constitutional Present: no acute distress - Routine HEENT Exam Head: Present: normocephalic, atraumatic Eye: Present: EOMI ENT: Present: mucous membranes dry - Routine Respiratory Exam Present: CTA bilaterally. Absent: accessory muscle use - Routine Cardiovascular Exam Present: RRR, S1, S2, no murmur - Routine Abdominal Exam Present: soft Comments: hyperactive bowel sounds with no tenderness - Routine Extremities Exam Absent: cyanosis, clubbing, edema - Routine Skin Exam Present: intact - Routine Neurological Exam Present: alert, oriented X3, CN II-XII intact Results - Labs CBC & Chem 7: 11/09/17 06:50 11/09/17 01:45 Assessment and Plan (1) GI bleed Current visit: Yes Status: Acute (2) HTN (hypertension) Current visit: Yes Status: Acute (3) Hyperglycemia Current visit: Yes Status: Acute (4) Anemia Current visit: Yes Status: Acute (5) GERD (gastroesophageal reflux disease) Current visit: Yes Status: Acute Assessment and Plan: 1. Acute lower GI bleed based on history and BUN 20--admit to inpatient with hgb again in 2 hours, PPI IV, npo, IVF, prns for pain and nausea. May need Aurelia consult for colonoscopy this admit. More likely diverticular, hemorrhoidal, than other. 2. GERD hx on PPI 3. Normocytic anemia with prior 10, stable BP. Recheck and transfuse if less than 7 4. Paroxysmal afib s/p ablation and should come off Xarelto now. 5. Hyperglycemia likely stress induced 6. s/p LLLobectomy for NSCLC and chronic hypoxic resp failure on 2L NC 7. h/o lymphoma s/p chemo. DVT Prophylaxis: SCD's GI Prophylaxis: Protonix Resuscitation Status: Full Code - Time spent with patient Time with patient PN: 70 minutes - Physician Narrative Physician: Mayra De La Fuente MD Narrative: Date: 11/09/17 Time: 929 Dr. De La Fuente I have seen and examined the patient. I've reviewed the H&P above by Dr. Sosa and agree. Please see my additions below. Chief complaint: Bloody stools History of present illness: Patient is a pleasant 67-year-old female who had lymphoma in December 2016 for which she underwent chemotherapy with Dr. Vang. She was then diagnosed with non-small cell lung cancer and underwent a left lower lobe lobectomy on 10/13/2017. Since that time, she has been on supplemental oxygen. She states that a couple of months ago she noticed some black tarry stools but then they resolved. Recently she has noticed some mucus surrounding her bowel movement and sometimes the mucus is "efe" colored. She was scheduled to have a colonoscopy in the near future with Dr. Moses. Last night she developed red bloody stools with some mild lower abdominal discomfort. She had for 5 stools last night prior to coming to the emergency room. Hemoglobin last evening was 9.2 at 145 this morning. On recheck at 06 50 this morning was 7.6. She denies any chest pain or lightheadedness. She states she has been short of breath for about 3-4 years and has been on oxygen since her left lower lobe lobectomy. She denies really more short of breath now and she has in the past 3- 4 years. She underwent ablation for atrial fibrillation in November 2016. As far she is aware, she has been in sinus rhythm since that time. She is currently on Xarelto to prevent stroke with her A. fib. Her last dose was 5 PM yesterday. Past medical history is reviewed and agree. Surgical history is reviewed and agreed. Family history is reviewed above. Social history the patient is a former smoker. She is single. She wants her son Bridger make medical decisions for her if she cannot make them herself. She does want to fill out DPOA paperwork today. Medications are reviewed and in addition she is on Xarelto 20 mg daily Allergies are reviewed Comprehensive review of systems is negative other than the above in history of present illness Physical exam Afebrile, heart rate 74, blood pressure 173/79, O2 sat 96% on room air Gen. this is a well-developed well-nourished anxious female HEENT-pupils are equal and round, extraocular movements are intact, oropharynx is moist NECK-supple CV-regular rate and rhythm CHEST-clear to auscultation bilaterally ABD-soft, mildly tender, but without rebound or guarding positive bowel sounds , nondistended -no Potts EXT-no edema NEURO-no focal deficits SKIN-warm and dry without rashes Impression GI bleed-likely lower Acute blood loss anemia Chronic anticoagulation with Xarelto Hypertension GERD Black stools 2 months ago-no recurrence History of A. fib Plan Transfuse 1 unit of blood now. Stay 2 units of blood had Consider aPCC if bleeding worsens Serial hemoglobin Protonix IV Consult Dr. Roman. I did discuss the patient with him earlier today Iron panel, B-12, folate Continue antihypertensives if blood pressures allow Continue multaq DC Xarelto. The patient was transferred from the medical floor to CCU for closer monitoring. Discussed with patient's son who the patient wants to be DPOA. Greater than 70 minutes of critical care time spent seeing and evaluating patient in determining care plan. Hospital Course Summary Disclaimer: The visit summary below is not to be considered part of the above Progress Note.
[2017-11-09] MEDS ORDERED: NS FLUSH BAG 500ml IV PRN ×3 (07:59→08:35)
[2017-11-09] MEDS ORDERED: DiphenhydrAMINE 25 MG CAPSULE PO ONE (08:35)
[2017-11-09] MEDS ORDERED: ACETAMINOPHEN 325 MG TABLET PO ONE (09:24)
[2017-11-09] MEDS: NS 1,000 ML IV SCH ×2 (09:52→20:55)
[2017-11-09] MEDS ORDERED: FUROSEMIDE 20 MG/2 ML INJECTION IVP ONE (09:55)
[2017-11-09] MEDS: LABETALOL 100 MG TABLET PO SCH ×2 (12:33→20:53)
[2017-11-09] MEDS: PANTOPRAZOLE 40 MG INJECTION IVP SCH ×2 (12:33→22:17)
[2017-11-09] MEDS: Oxycodone/Apap 10/325 1 TAB PO SCH ×2 (15:59→21:15)
--- NOTE | 2017-11-09 17:19 | General Surgery Consult Note ---
Consult date: 11/09/17 Attending Physician: Mayra De La Fuente MD Reason for consult: other (GI bleed) [facility] Medical History (Last Updated 11/09/17 @ 17:07 by Cuate Roman MD) Non-small cell cancer of left lung (Acute Medical) Oncologist: Dr. 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 Vang Non Hogkin's lymphoma Surgical History: * Colonoscopy - 11/08/[address] Gupta. Only showed 4 hyperplastic polyps. * Laparoscopy with removal of hemorrhagic epiploic fat - 12/12/[address] Reyes. * Cardiac ablation - [address] Hand. * Hysteroscopy and D&C - 12/12/[address] Clement. * Cardiac ablation - 11/[address] Hand. * Excision inguinal lymph node - 02/02/[address] Moses. * Right subclavian PowerPort placement - 02/27/[address] Moses. * Robotic left upper lobectomy - 10/13/[address] Donovan Hilliard. Family History: Family History (Last Updated 08/11/17 @ 14:04 by Soheila Jones APRN) Father CAD (coronary atherosclerotic disease) Diabetes Heart disease Mother Heart disease Sister Ovarian cancer - Social History Smoking status: Former smoker (quit 2012) Substance use type: does not use Alcohol intake frequency: does not drink Current occupational status: retired Social history: 2 Sons - 1 locally, 1 in [place] 4 Grandkids Medications Home Medications Medication Instructions Recorded Confirmed Type Omeprazole Magnesium [Prilosec Otc] 20 mg PO DAILY #0 01/10/10 11/09/17 History Dronedarone [Multaq] 400 mg PO BID #0 12/11/15 11/09/17 History Labetalol HCl 1.5 mg PO BID #0 06/15/16 11/09/17 History Lisinopril 10 mg PO DAILY #0 06/15/16 11/09/17 History Furosemide [Lasix] 1 tab PO DAILY 11/09/17 11/09/17 History Oxycodone/Apap 10/325 [Percocet 1 tab PO Q6HR 11/09/17 11/09/17 History 10/325] Prochlorperazine Maleate 1 tab PO Q6HR PRN 11/09/17 11/09/17 History [Compazine] Allergies Allergy/AdvReac Type Severity Reaction Status Date / Time cefoperazone Allergy Unknown Verified 11/09/17 02:08 codeine Allergy Unknown Verified 11/09/17 02:08 diazepam Allergy Unknown Verified 11/09/17 02:08 sulbactam Allergy Unknown Verified 11/09/17 02:08 nitroglycerin AdvReac Intermediate Verified 11/09/17 02:08 hydrocodone AdvReac Unknown Nausea and Verified 11/09/17 02:08 Vomiting niacin AdvReac Unknown Nausea and Verified 11/09/17 02:08 Vomiting Review of Systems 10-point ROS: negative except for HPI - Cardiovascular Cardiovascular: Present: edema/swelling - Respiratory Respiratory: Present: use of oxygen (since lung surgery - 2 L NC) - Gastrointestinal Gastrointestinal: Present: diarrhea, blood in stools - Genitourinary Females Only: Present: menopause - Musculoskeletal Musculoskeletal: Present: joint pain (left knee) - Hematologic/Lymphatic Hematologic/Lymphatic: Present: use of blood thinners - Vital Signs Last Vital Signs Temp 97.9 F 11/09/17 11:15 Pulse 79 11/09/17 16:00 Resp 35 H 11/09/17 16:00 BP 144/70 H 11/09/17 14:15 Pulse Ox 99 11/09/17 16:00 - Laboratory Result Diagrams: 11/09/17 13:22 11/09/17 01:45 Hospital Course Summary Disclaimer: The visit summary below is not to be considered part of the above Progress Note.
[2017-11-10] MEDS ORDERED: NS FLUSH BAG 500ml IV PRN (05:29)
[2017-11-10] MEDS: Oxycodone/Apap 10/325 1 TAB PO PRN ×2 (06:32→15:52)
[2017-11-10] MEDS ORDERED: SALINE 0.65% NASAL SPRAY 44 ML BOTTLE EA NOSTRIL PRN (06:55)
[2017-11-10] MEDS ORDERED: FUROSEMIDE 20 MG/2 ML INJECTION IVP ONE (07:49)
--- NOTE | 2017-11-10 08:50 | Consultation ---
DATE OF CONSULTATION 11/09/2017 CONSULTING PHYSICIAN Cuate Roman MD REQUESTING PHYSICIAN Dr. Mayra De La Fuente REASON FOR CONSULTATION GI bleed. IMPRESSION 1. Acute GI bleed with hematochezia. 2. Anticoagulation with Xarelto - currently held. 3. History of paroxysmal atrial fibrillation - currently in normal sinus rhythm. 4. Non-Hodgkin's lymphoma. 5. History of non-small cell lung cancer, status post recent left upper lobectomy. 6. Acute blood loss anemia due to GI losses. RECOMMENDATIONS 1. Continue to follow hemoglobin and transfuse as necessary. 2. Hold Xarelto as is already being done. 3. I think with her recent improvement in hemoglobin she could be started on a clear liquid diet while awaiting bowel prep. 4. If her hemoglobin is stable tomorrow I will plan on bowel preparation tomorrow in anticipation of a colonoscopy on Thursday. HISTORY OF PRESENT ILLNESS Ree is a patient that is well-known to my partner, Dr. Moses, given multiple prior procedures. He had seen the patient in the clinic on 08/11/2017 for evaluation for a colonoscopy due to anemia and some changes in her bowel habits of looser stools with rectal bleeding. He had offered her colonoscopy but she had postponed scheduling since she was planning to undergo treatment for a lung lesion with lobectomy. Last night she developed bright red blood per rectum and had multiple loose stools consisting of blood. These were a fairly large amount. She presented to the emergency room and was noted to have anemia with a hemoglobin of 9.2 which is lower than prior outpatient values. She was admitted to the hospitalist service. She has continued to have some blood with bowel movements but it has decreased in amount as well as in color. She now has more darker stools but still notices bright red blood on the toilet paper. She has been taking Xarelto and took her last dose around 5:20 p.m. last evening. She has received one unit of blood and her hemoglobin has improved from 7.6 to 8.4 on her last check. She does note some cramping abdominal pain in the mid lower abdomen and left lower quadrant. She rates this pain only at 3-4/10 in severity. PAST MEDICAL HISTORY, PAST SURGICAL HISTORY, ALLERGIES, MEDICATIONS, SOCIAL HISTORY, FAMILY HISTORY, REVIEW OF SYSTEMS, VITAL SIGNS See electronic consultation report. The patient is on Xarelto and this was documented in the computer, but was not included in the medication list of the template. PHYSICAL EXAMINATION GENERAL: The patient is awake and alert, in no acute distress. HEENT: Sclerae clear. Extraocular muscles intact. NECK: Supple with a midline trachea. No lymphadenopathy or thyromegaly noted. HEART: Regular rate and rhythm. LUNGS: Clear to auscultation bilaterally. ABDOMEN: Soft, nontender, nondistended. EXTREMITIES: No clubbing or cyanosis. She does have some skin indentation but no significant edema of the lower extremities. NEURO: Cranial nerves II-XII are grossly intact. PSYCHIATRIC: Normal mood and affect. LABORATORY DATA Hemoglobin on admission was 9.2. This decreased to 7.6 and then increased on last recheck up to 8.4. Platelet count has been normal. PATIENT EDUCATION The details, risks and benefits of colonoscopy were discussed with the patient. The discussion included but was not limited to bleeding, perforation, aspiration, missed lesions, possible need for surgical repair, possible need for additional procedures, and complications of anesthesia. She voiced understanding of the surgical plan and did wish to proceed towards colonoscopy during this hospital stay. HEATHER
[2017-11-10] MEDS: LABETALOL 100 MG TABLET PO SCH ×2 (09:34→20:58)
[2017-11-10] MEDS: METOCLOPRAMIDE 10mg/2ml INJECTION IVP PRN ×3 (11:01→21:28)
[2017-11-10] MEDS: SALINE FLUSH 10ml SYRINGE IVF PRN (11:01)
[2017-11-10] MEDS: PANTOPRAZOLE 40 MG INJECTION IVP SCH ×2 (11:03→23:09)
[2017-11-10] MEDS ORDERED: Bisacodyl EC TAB 5 MG TABLET PO ONE (13:30)
[2017-11-10] MEDS ORDERED: POLYETHYL. GLYCOL 3350 BOTTLE 238 GM PO ONE (15:30)
[2017-11-10] MEDS ORDERED: ONDANSETRON 4 MG/2 ML INJECTION IVP PRN (19:31)
--- NOTE | 2017-11-10 19:31 | Progress Note ---
- Date 11/10/17 Subjective: The patient was seen this morning in CCU. She was receiving another unit of blood due to a drop in hemoglobin to 7.6.. She had a small bowel movement overnight which was not black or bloody appearing. She denied any shortness of breath or chest pain. She stated she was feeling better. She appears less anxious. She is tolerating clear liquids without difficulties. He slept fairly well last night. Objective Vital signs: Temperature 98.2 F 11/10/17 16:00 Pulse Rate 80 11/10/17 18:15 Respiratory Rate 36 H 11/10/17 18:15 Blood Pressure 138/76 11/10/17 18:00 Pulse Oximetry 98 11/10/17 14:15 Height/Weight/BMI: Height 1.63 m Weight 87 kg Body Mass Index 33.5 Comments: GEN-alert, oriented, no acute distress HEENT-sclera anicteric, oropharynx is moist NECK-good range of motion CV-regular rate and rhythm CHEST-clear to auscultation ABD-soft, nontender with positive bowel sounds -no Potts EXT-no edema NEURO-no focal deficits SKIN-warm and dry Results - Labs CBC & Chem 7: 11/10/17 15:46 11/10/17 03:53 Labs: INR is 1.25 down from 1.34. Assessment and Plan (1) GI bleed Current visit: Yes Status: Acute (2) HTN (hypertension) Current visit: Yes Status: Acute (3) Hyperglycemia Current visit: Yes Status: Acute (4) Anemia Current visit: Yes Status: Acute (5) GERD (gastroesophageal reflux disease) Current visit: Yes Status: Acute Assessment and Plan: Impression GI bleed Acute blood loss anemia-she received 1 unit of blood yesterday and one unit of blood today Chronic anticoagulation-Xarelto on hold Hypertension GERD History of A. fib Recent left lower lobectomy for lung cancer Hypoxia since partial lung resection Plan Discussed with Dr. Roman, plan is for EGD and colonoscopy tomorrow. With her colon prep, she has had black to maroon colored stools. Continue PPI The patient was given Lasix after her unit of blood today. Continue SCDs for DVT prophylaxis Continue to monitor in intensive care Renal panel, CBC, magnesium tomorrow IV fluids were discontinued this morning Continue serial hemoglobin Discussed with patient's nurse - Physician Narrative Narrative: Date: 11/10/17 Time: 1923 Hospital Course Summary Disclaimer: The visit summary below is not to be considered part of the above Progress Note.
--- NOTE | 2017-11-11 07:16 | Progress Note ---
DATE OF VISIT 11/10/2017 REASON FOR VISIT Follow GI bleed. SUBJECTIVE Ree has had three bowel movements today. Her last bowel movement has been more black in appearance. Her hemoglobin had drifted down and she did receive one more unit of blood this morning. She still reports some left lower quadrant abdominal pain. Dr. De La Fuente had been worried about the melanotic appearing stools that occurred a few months ago and had wondered about addition of an EGD. OBJECTIVE VITALS: Temperature 97.8, pulse 69, blood pressure 159/74, respiratory rate 26 , oxygen saturation 97% on 3 liters nasal cannula. GENERAL: The patient is awake, alert, in no acute distress. ABDOMEN: Soft, minimally tender in the left lower quadrant. No guarding or rebound are noted. LABORATORY DATA Hemoglobin trend has been 8.4, 7.9, 7.6, and a 8.9 following transfusion today. IMPRESSION 1. Acute GI bleed with hematochezia. 2. Acute blood loss anemia secondary to GI losses. 3. Anticoagulation with Xarelto - held for greater than 24 hours. PLAN 1. Given the reported history of melanotic stools a few months ago, I do think it would be reasonable to add an EGD to her endoscopy workup since she has a history of GERD. This will also be helpful since she is going to be on anticoagulation in case she has another potential source of GI losses. 2. I ordered her bowel prep for this afternoon since hemoglobin trend has not dropped significantly and has improved with most recent transfusion. 3. Plan on EGD and colonoscopy tomorrow. 4. NPO at midnight. MTDD
--- NOTE | 2017-11-11 09:20 | Progress Note ---
- Date 11/11/17 Subjective: The patient was seen this morning in her room. She continues to have clear stools this morning after colon prep yesterday. No bloody stools. She had nausea and vomiting last evening that has resolved now. She did receive a dose of Zofran and her multaq was held last night but will be restarted today. She denies any shortness of breath or lightheadedness. She denies any headache, chest pain or abdominal pain. She states she is feeling okay. Objective Vital signs: Temperature 98.4 F 11/11/17 08:15 Pulse Rate 68 11/11/17 08:15 Respiratory Rate 11/11/17 08:15 Blood Pressure 129/62 11/11/17 08:00 Pulse Oximetry 97 11/11/17 08:15 Height/Weight/BMI: Height 1.63 m Weight 88.3 kg Body Mass Index 33.5 Comments: GEN-alert, oriented, no acute distress HEENT-sclera anicteric, oropharynx is moist NECK-supple CV-regular rate and rhythm CHEST-clear to auscultation bilaterally ABD-soft, nontender with positive bowel sounds -no Potts EXT-no edema NEURO-no focal deficits SKIN-warm and dry Results - Labs CBC & Chem 7: 11/11/17 03:50 11/11/17 03:50 Labs: Magnesium, phosphorus, albumin, and calcium are normal this morning. Potassium is 3.3. Hemoglobin today is 9.0 up from 7.6 yesterday. She did receive 1 unit of blood yesterday. Iron studies, B-12 and folate are all within normal limits Assessment and Plan (1) GI bleed Current visit: Yes Status: Acute (2) HTN (hypertension) Current visit: Yes Status: Acute (3) Hyperglycemia Current visit: Yes Status: Acute (4) Anemia Current visit: Yes Status: Acute (5) GERD (gastroesophageal reflux disease) Current visit: Yes Status: Acute Assessment and Plan: Impression GI bleed-no further bleeding overnight Acute blood loss anemia-she received 1 unit of blood to 2017 and 1 unit on Chronic anticoagulation-Xarelto on hold since admission Hypertension GERD History of A. fib-currently in sinus rhythm Recent left lower lobectomy for lung cancer Hypoxia since partial lung resection-stable on 2 L of oxygen Mild hypokalemia Plan Plan for EGD and colonoscopy later today Replace potassium IV Continue PPI Continue SCDs for DVT prophylaxis Continue to monitor in intensive care Continue serial hemoglobin Discussed with patient's nurse The patient was given zofran for nausea last night and dose of multaq held last night but will be restarted today and zofran stopped. DVT Prophylaxis: SCD's GI Prophylaxis: Protonix Resuscitation Status: Full Code - Physician Narrative Narrative: Date: 11/11/17 Time: 0917 Hospital Course Summary Disclaimer: The visit summary below is not to be considered part of the above Progress Note. Hospital Course: 11/10/2017 Impression GI bleed Acute blood loss anemia-she received 1 unit of blood yesterday and one unit of blood today Chronic anticoagulation-Xarelto on hold Hypertension GERD History of A. fib Recent left lower lobectomy for lung cancer Hypoxia since partial lung resection Plan Discussed with Dr. Roman, plan is for EGD and colonoscopy tomorrow. With her colon prep, she has had black to maroon colored stools. Continue PPI The patient was given Lasix after her unit of blood today. Continue SCDs for DVT prophylaxis Continue to monitor in intensive care Renal panel, CBC, magnesium tomorrow IV fluids were discontinued this morning Continue serial hemoglobin Discussed with patient's nurse
[2017-11-11] MEDS: POTASSIUM CHLORIDE PREMIX 10 MEQ/100 ML BAG IV SCH ×2 (09:28→10:43)
[2017-11-11] MEDS: LABETALOL 100 MG TABLET PO SCH ×2 (09:34→20:40)
[2017-11-11] MEDS: PANTOPRAZOLE 40 MG INJECTION IVP SCH ×2 (11:33→23:33)
--- NOTE | 2017-11-11 14:39 | Anesthesia Preoperative Report ---
Anesthesia Preoperative Record - Date and Time Date: 11/11/17 Preoperative Diagnosis: GI bleed Proposed Procedure: egd colonoscopy NPO Since Date: 11/10/17 NPO Since Time: 22:00 Allergies/Adverse Reactions: Allergies Allergy/AdvReac Type Severity Reaction Status Date / Time cefoperazone Allergy Unknown Verified 11/09/17 02:08 codeine Allergy Unknown Verified 11/09/17 02:08 diazepam Allergy Unknown Verified 11/09/17 02:08 sulbactam Allergy Unknown Verified 11/09/17 02:08 nitroglycerin AdvReac Intermediate Verified 11/09/17 02:08 hydrocodone AdvReac Unknown Nausea and Verified 11/09/17 02:08 Vomiting niacin AdvReac Unknown Nausea and Verified 11/09/17 02:08 Vomiting - Vital Signs Vital Signs: Temperature 97.9 F 11/11/17 12:00 Pulse Rate 800 H 11/11/17 12:00 Respiratory Rate 20 11/11/17 12:00 Blood Pressure 146/69 H 11/11/17 12:00 Pulse Oximetry 95 11/11/17 12:00 Height and Weight: Height 1.63 m Weight 88.3 kg Body Mass Index 33.5 - Medications Inpatient Medications: Current Medications Albuterol Sulfate (Proventil Neb (0.083%)) 2.5 mg IPPB RTQID PRN Dronedarone (Multaq) 400 mg PO BIDWM TABITHA Labetalol HCl (Normodyne) 300 mg PO BID [facility] Last Admin: 11/11/17 09:34 Dose: 300 mg Metoclopramide HCl (Reglan) 10 mg IVP Q6H PRN Last Admin: 11/10/17 21:28 Dose: 10 mg Morphine Sulfate (Morphine Sulfate Inj) 2 mg IVP Q2H PRN PRN Reason: Pain Oxycodone/Acetaminophen (Percocet 10/325) 1 tab PO Q6H PRN PRN Reason: Pain Last Admin: 11/10/17 15:52 Dose: 1 tab Pantoprazole Sodium (Protonix Iv) 40 mg IVP Q12H [facility] Last Admin: 11/11/17 11:33 Dose: 40 mg Sodium Chloride (Iv Flush) 10 - 80 ml IVF PRN PRN PRN Reason: Flushing Last Admin: 11/10/17 11:01 Dose: 10 ml Sodium Chloride (Normal Saline) 500 ml IV PRN PRN Sodium Chloride (Deep Sea Nasal Moisturizing Husser) 1 spray EA NOSTRIL PRN PRN PRN Reason: Congestion Home Medications: Home Medications Medication Instructions Recorded Confirmed Type Omeprazole Magnesium [Prilosec Otc] 20 mg PO DAILY #0 01/10/10 11/09/17 History Dronedarone [Multaq] 400 mg PO BID #0 12/11/15 11/09/17 History Labetalol HCl 1.5 mg PO BID #0 06/15/16 11/09/17 History Lisinopril 10 mg PO DAILY #0 06/15/16 11/09/17 History Furosemide [Lasix] 1 tab PO DAILY 11/09/17 11/09/17 History Oxycodone/Apap 10/325 [Percocet 1 tab PO Q6HR 11/09/17 11/09/17 History 10/325] Prochlorperazine Maleate 1 tab PO Q6HR PRN 11/09/17 11/09/17 History [Compazine] Is Patient on Beta Piper?: No - Medical History Respiratory: Reports: Dyspnea (CHRONIC), Sleep Apnea, Other (09/23 LEFT LUNG CA/ REMOVED 10/08) Cardiovascular: Reports: Abnormal EKG (AFIB), Arrhythmia (AFIB), Hypertension Gastrointestional: Reports: Other (CURRENT BLOOD/DIARRHEA) Neuro/Musculoskeletal: Reports: 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), Depression Other History: Reports: Cancer (LYMPH NODES) - Surgical History Cardiac Surgeries/Treatments: Reports: Other (ablation 2016) Respiratory Surgery/Treatments: Reports: Oxygen Administration (2 L PER NC) GI Surgery/Treatments: Reports: Colonoscopy (unknown date) - Social History Smoking Status: Former smoker (quit 2012) Hx Chewing Tobacco Use: No Second Hand Exposure: No Substance Use Type: does not use Alcohol Intake Frequency: does not drink - Pertinent Findings Laboratory: CBC and BMP 11/11/17 10:07 11/11/17 03:50 BMP 11/11/17 03:50 Sodium 143 Potassium 3.3 L Chloride 105 Carbon Dioxide 30 BUN 11.0 Creatinine 0.9 Glucose 100 Calcium 9.3 Liver Function 11/11/17 Range/Units 03:50 Albumin 3.5 (3.5-5.0) G/DL EKG: Sinus Rhythm - Physical Exam Respiratory Exam: Present: lungs clear Cardiovascular Exam: Present: regular rate and rhythm, no murmur - Airway Assessment Mallampati Score: II TMD: 3 Fingerbreadths Neck Extension: good Teeth: chipped teeth/crowns Overall Assessment: no airway concerns - ASA ASA Score: 3 - Plan Anesthesia: General TIVA - Discussion Discussion: Discussed risks/options/alternatives of anesthesia and questions answered. Patient consents. Nursing pain assessment noted. Present for Discussion: family member Attestation Statement: Prior to the delivery of any anesthetic medication, I examined the patient, developed the plan, obtained the patient's consent and discussed the risk and benefits of the procedure with the patient/guardian. - Additional Information Seen by Anesthesia: Yes
[2017-11-11] MEDS: LR 1,000 ML IV SCH ×2 (14:43→22:55)
[2017-11-11] MEDS ORDERED: PROPOFOL 500 MG/50 ML VIAL ONE ×3 (14:56→15:28)
--- NOTE | 2017-11-11 16:16 | General Surgery Procedure Note ---
Date of Procedure: 11/11/17 Surgeon: Jessie Anesthesia: General TIVA ASA Score: 3 Postoperative Diagnosis: Colitis, mild gastritis, gastic polyps (likely fundic gland polyps) Procedure: EGD with biopsies/polypectomies, colonoscopy with biopsies
[2017-11-11] MEDS: SUCRALFATE 1 GM TABLET PO SCH ×2 (17:30→20:40)
--- NOTE | 2017-11-11 17:39 | Anesthesia Postoperative Note ---
- Date and Time Date: 11/11/17 Time: 16:15 - Status Patient Participated in Evaluation: Patient Participated in Person Vital Signs: Temperature 98.3 F 11/11/17 17:00 Pulse Rate 86 11/11/17 17:00 Respiratory Rate 20 11/11/17 16:25 Blood Pressure 175/74 H 11/11/17 17:00 Pulse Oximetry 92 11/11/17 17:00 Respiratory Function: Airway Patent Cardiovascular Function: Regular Pulse EKG: Sinus Rhythm Mental Status: Alert and Oriented Pain Intensity: 0 Hydration: IV Infusing Complications During Recover: None Apparent - Follow-Up Instructions Instructions: Per Surgeon
[2017-11-11] MEDS: Oxycodone/Apap 10/325 1 TAB PO PRN (20:45)
[2017-11-12] MEDS: SUCRALFATE 1 GM TABLET PO SCH ×4 (06:19→20:21)
[2017-11-12] MEDS: LABETALOL 100 MG TABLET PO SCH ×2 (09:47→20:21)
[2017-11-12] MEDS: NS 1,000 ML IV SCH (11:42)
[2017-11-12] MEDS: PANTOPRAZOLE 40 MG INJECTION IVP SCH ×2 (12:00→23:24)
[2017-11-12] MEDS: SALINE FLUSH 10ml SYRINGE IVF PRN ×2 (12:01→20:20)
--- NOTE | 2017-11-12 13:18 | Progress Note ---
- Date 11/12/17 Subjective: F/U: GI bleed, Acute blood loss anemia Doing okay today. Tolerating clear liquids but stomach feels 'blah' - would like to try more solid foods (toast); want to advance diet gradually. Slight nausea. Passing flatus. Breathing stable-not having increased SOA or congestion. Breathing well with O2 at 2L - saturations do decrease without O2. Is on O2 at home at 2L. Strength improving-able to transfer out of bed without difficulty. Not feeling dizzy or unsteady with positional changes. Overall, feels like she is improving gradually. Objective Vital signs: Temperature 97.0 F 11/12/17 12:02 Pulse Rate 75 11/12/17 12:02 Respiratory Rate 20 11/12/17 12:02 Blood Pressure 135/66 11/12/17 12:02 Pulse Oximetry 92 11/12/17 12:02 Height/Weight/BMI: Height 1.63 m Weight 85.7 kg Body Mass Index 33.5 - Constitutional Present: well nourished, well developed, average body habitus, obese, cooperative - Routine HEENT Exam Head: Present: normocephalic, atraumatic Eye: Present: EOMI, PERRL ENT: Present: mucous membranes moist - Routine Respiratory Exam Present: decreased breath sounds. Absent: rales, respiratory distress, rhonchi , wheezes, crackles - Routine Cardiovascular Exam Present: RRR, no murmur - Routine Abdominal Exam Present: soft, normoactive bowel sounds, non distended, non tender. Absent: guarding - Routine Extremities Exam Present: pulses intact. Absent: cyanosis, clubbing - Routine Musculoskeletal Exam Musculoskeletal: Present: no clubbing or cyanosis - Routine Skin Exam Present: dry, warm - Routine Neurological Exam Present: alert, oriented X3, CN II-XII intact, moving all extremities, vision grossly intact, hearing grossly intact, normal speech. Absent: motor deficit, altered mental status - Routine Psychiatric Exam Present: normal affect, normal thought process, cooperative Results - Labs CBC & Chem 7: 11/12/17 04:30 11/12/17 04:30 Assessment and Plan (1) GI bleed Current visit: Yes Status: Acute (2) HTN (hypertension) Current visit: Yes Status: Acute (3) Hyperglycemia Current visit: Yes Status: Acute (4) Anemia Current visit: Yes Status: Acute (5) GERD (gastroesophageal reflux disease) Current visit: Yes Status: Acute Assessment and Plan: Impression Acute GI bleed Colitis Mild gastritis Gastric polyps (likely fundic gland polyps) Acute blood loss anemia - Transfuse 1 unit of blood on 11/09/2017 and 1 unit on 11/10/2017 Chronic anticoagulation-Xarelto on hold since admission Hypertension GERD History of A. fib-currently in sinus rhythm Recent left lower lobectomy for lung cancer Hypoxia since partial lung resection-stable on 2 L of oxygen Mild hypokalemia (Not POA) Plan HGB with decrease from 9.0 yesterday am (with recheck H/H 9.8) to 8.5 this am. Will recheck H/H this afternoon. Advance diet to regular. Advised bland diet with cautious intake. Potassium decreased at 3.3 this am. Will give potassium chloride 20mEq x2 today. Continue IV Protonix - Carafate 1 gram AC/HS started yesterday. Encourage activities to help increase strength. Discussed PCP with patient - currently does not have PCP ([facility] for ONC care). Encourage patient to look into new PCP. Will recheck CBC tomorrow secondary to anemia. Repeat BMP and Mg tomorrow due to hypokalemia. Case discussed with CM. Time spent with patient care 25 minutes. DVT Prophylaxis: SCD's GI Prophylaxis: Protonix Resuscitation Status: Full Code - Time spent with patient Time with patient PN: 25 minutes - Physician Narrative Physician: Leonardo Hdez MD Narrative: Date: 11/12/17 Time: 1310 Hospital Course Summary Disclaimer: The visit summary below is not to be considered part of the above Progress Note. Hospital Course: 11/09/17 Admission Acute lower GI bleed based on history and BUN 20--admit to inpatient with hgb again in 2 hours, PPI IV, npo, IVF, prns for pain and nausea. May need Aurelia consult for colonoscopy this admit. More likely diverticular, hemorrhoidal, than other. Normocytic anemia with prior 10, stable BP. Recheck and transfuse if less than 7 GERD hx on PPI Paroxysmal afib s/p ablation and should come off Xarelto now. Hyperglycemia likely stress induced S/P LLLobectomy for NSCLC and chronic hypoxic respiratory failure on 2L NC H/O lymphoma s/p chemo. Hemoglobin droped from 9.2 at presentation to 7.6. Transfuse 1 unit of blood now. Stay 2 units of blood had Consider aPCC if bleeding worsens Serial hemoglobin Protonix IV Consult Dr. Roman. I did discuss the patient with him earlier today Iron panel, B-12, folate Continue antihypertensives if blood pressures allow Continue Multaq DC Xarelto secondary to acute GI bleeding and anemia. The patient was transferred from the medical floor to CCU for closer monitoring. Discussed with patient's son who the patient wants to be DPOA. 11/10/[address] Roman, plan is for EGD and colonoscopy tomorrow. With her colon prep, she has had black to maroon colored stools. Continue PPI. Hemoglobin decreased to 7.6 - Transfused 1 unit pRBC. Lasix given after her unit of blood transfused. Continue SCDs for DVT prophylaxis Continue to monitor in intensive care. Renal panel, CBC, magnesium tomorrow. IV fluids were discontinued this morning. Continue serial hemoglobin. 11/11/17 OP DAY EGD and colonoscopy revealed: Colitis, mild gastritis, gastic polyps (likely fundic gland polyps). Potassium decreased to 3.3. Replace potassium IV. The patient was given Zofran for nausea last night and dose of multaq held last night but will be restarted today and Zofran stopped. 11/12/17 HGB with decrease from 9.0 yesterday am (with recheck H/H 9.8) to 8.5 this am. Will recheck H/H this afternoon. Advance diet to regular. Advised bland diet with cautious intake. Potassium decreased at 3.3 this am. Will give potassium chloride 20mEq x2 today. Continue IV Protonix - Carafate 1 gram AC/HS started yesterday. Encourage activities to help increase strength. Discussed PCP with patient - currently does not have PCP ([facility] for ONC care). Encourage patient to look into new PCP.
[2017-11-12] MEDS: Oxycodone/Apap 10/325 1 TAB PO PRN (15:58)
[2017-11-12] MEDS ORDERED: MAGNESIUM OXIDE 400 MG TABLET PO ONE (17:30)
[2017-11-12] MEDS: METOCLOPRAMIDE 10mg/2ml INJECTION IVP PRN (20:19)
[2017-11-13 00:04] VITALS: RESP 18; TEMP 97.1
[2017-11-13] MEDS: SUCRALFATE 1 GM TABLET PO SCH ×2 (06:48→11:19)
[2017-11-13 08:18] VITALS: BP 158/84; PULSE 75; O2SAT 95
--- NOTE | 2017-11-13 09:24 | Operative Note ---
DATE OF PROCEDURE 11/11/2017 SURGEON Cuate Roman MD PREOPERATIVE DIAGNOSES 1. Acute GI bleed. 2. Acute blood loss anemia secondary to GI losses. 3. Anticoagulation with Xarelto - held for greater than 24 hours. POSTOPERATIVE DIAGNOSES 1. Gastritis. 2. Small gastric polyps - likely fundic gland polyps, pathology pending. 3. Colitis most significantly affecting the distal 70 cm of the colon but extending from the cecum to the rectum - pathology pending. 4. Sliding hiatal hernia. PROCEDURE 1. Esophagogastroduodenoscopy with antral biopsy for SKYLAR testing, gastric biopsies for histology, and hot biopsy forceps polypectomy x3. 2. Total colonoscopy with biopsies. ANESTHESIA TIVA ASA CLASS 3 INDICATIONS The patient is a 67-year-old female who was admitted to the hospital due to a low hemoglobin and multiple bloody stools. She had been anticoagulated with Xarelto because of a history of atrial fibrillation. Her Xarelto was stopped. She has required transfusion of two units of blood. She also had a history of potential melanotic stools a few months ago and has a history of gastroesophageal reflux disease. Given her situation, upper and lower endoscopy were recommended to her. FINDINGS The main finding and likely source of her GI bleeding was in the colon with colitis. The mucosal changes were mild in the cecum, ascending colon, and transverse colon. There was more significant inflammation in the descending colon and sigmoid colon and even more involvement of the rectum. There was also some gastritis which showed no evidence of ulceration. There were some gastric polyps consistent with fundic gland polyps. The esophagus and duodenum were normal. There was a small sliding hiatal hernia. DESCRIPTION OF PROCEDURE After informed consent was obtained, the patient was taken to the endoscopy suite and placed in the left lateral decubitus position. IV anesthesia was administered by the Anesthesia team. A bite block was inserted followed by an Olympus video gastroscope. The gastroscope was advanced down to the second portion of the duodenum under direct vision. In the stomach, a biopsy was taken for SKYLAR testing. Additional biopsies in the antrum were taken for histology given the gastritis. The scope was retroflexed to examine the proximal stomach. The hiatal hernia was noted. Some of the polyps of the stomach were removed with hot biopsy forceps polypectomy technique. The polyp was grasped and cautery was applied to destroy the base of the polyp. The polyp was then removed and was sent to Pathology. A total of three polyps were removed to get a auto service representative sample. The biopsy sites were inspected and were found to be hemostatic. The scope was withdrawn into the esophagus and the esophagus was examined as the scope was removed. The patient was repositioned for colonoscopy. She had received a MiraLAX/ Dulcolax bowel prep the day prior. An Olympus video colonoscope with an AmplifEYE device was inserted and was retroflexed to examine the distal rectum after a digital rectal exam was performed and was normal. The scope was returned to a neutral position. It was advanced to the level of the proximal rectum where some significant inflammation of the lining of the mucosa was noted. Some biopsies of the irritation were taken and were sent to Pathology. It was advanced to the descending colon where the colitis persisted and additional biopsies were taken. It was then advanced to the cecum which was identified by the appendiceal orifice and ileocecal valve. The ileocecal valve was intubated with the colonoscope and the mucosa of the terminal ileum appeared grossly normal. The scope was withdrawn to the ascending colon and additional biopsies were taken and were sent to Pathology. The scope was slowly withdrawn examining the remainder of the mucosa circumferentially. The bowel prep was good with some residual liquid contents of the colon that were able to be irrigated and evacuated via the colonoscope. No other abnormalities were noted other than the colitis. Upon reaching the rectum, the carbon dioxide insufflation was evacuated and the scope was removed. RECOMMENDATIONS 1. Await SKYLAR test and histology results. 2. Add Carafate given the gastritis. 3. She could resume her usual PPI dose. 4. Add GI panel. MTDD
--- NOTE | 2017-11-13 09:26 | Progress Note ---
- Date 11/13/17 Subjective: F/U: GI bleed, Acute blood loss anemia Notes increase urinary frequency (decreased amount with each urination) and discomfort with urinating. Worries developed a UTI. Did okay with breakfast-not able to take all in due to some ab discomfort later in meal, but was not anticipating being able to eat all her food. Not having nausea. Breathing stable -no increased cough, congestion, or SOA. Strength stable. No f/c. Objective Vital signs: Temperature 97.1 F 11/13/17 08:00 Pulse Rate 75 11/13/17 08:00 Respiratory Rate 18 11/13/17 08:00 Blood Pressure 158/84 H 11/13/17 08:00 Pulse Oximetry 95 11/13/17 08:00 Height/Weight/BMI: Height 1.63 m Weight 86.4 kg Body Mass Index 33.5 - Constitutional Present: well nourished, well developed, obese, cooperative - Routine HEENT Exam Head: Present: normocephalic, atraumatic Eye: Present: EOMI, PERRL, normal accommodation ENT: Present: mucous membranes moist - Routine Respiratory Exam Present: decreased breath sounds, diminished air movement. Absent: respiratory distress, wheezes, crackles - Routine Cardiovascular Exam Present: RRR, no murmur - Routine Abdominal Exam Present: soft, non distended, non tender. Absent: normoactive bowel sounds ( Decreased), guarding - Routine Extremities Exam Present: no edema, pulses intact. Absent: cyanosis, clubbing - Routine Musculoskeletal Exam Musculoskeletal: Present: no clubbing or cyanosis - Routine Skin Exam Present: dry, warm - Routine Neurological Exam Present: alert, oriented X3, CN II-XII intact, moving all extremities, vision grossly intact, hearing grossly intact, normal speech. Absent: motor deficit, altered mental status - Routine Psychiatric Exam Present: normal affect, normal thought process, cooperative Results - Labs CBC & Chem 7: 11/13/17 04:23 11/13/17 04:23 Microbiology Results: Microbiology 11/11/17 14:58 Gastric Biopsy Helicobacter pylori Rapid Urease - Final Assessment and Plan (1) GI bleed Current visit: Yes Status: Acute (2) HTN (hypertension) Current visit: Yes Status: Acute (3) Hyperglycemia Current visit: Yes Status: Acute (4) Anemia Current visit: Yes Status: Acute (5) GERD (gastroesophageal reflux disease) Current visit: Yes Status: Acute Assessment and Plan: Impression Acute GI bleed Colitis Mild gastritis Gastric polyps (likely fundic gland polyps) Acute blood loss anemia - Transfuse 1 unit of blood on 11/09/2017 and 1 unit on 11/10/2017 Chronic anticoagulation-Xarelto on hold since admission Hypertension GERD History of A. fib-currently in sinus rhythm Recent left lower lobectomy for lung cancer Hypoxia since partial lung resection-stable on 2 L of oxygen Mild hypokalemia (Not POA) Dysuria Plan Will check UA secondary to dysuria and frequency. Potentially Pyridium may help bladder discomfort. HGB stable at 8.6. Potassium improved to 3.7. Rechecked this afternoon. Not able to produce urine sample. Not having the pain/ frequency she was this morning. In discussion with Dr Roman, he feels the colitis should be self limiting. Not needing treatments for colitis. Will continue with Carafate in addition to her PPI for 2 months. Hold Xarelto for at least 1 month - will have patient follow up with Dr Giraldo in 3 week to determine if she continues to need Xarelto. Encourage patient on establishing PCP care. Medically stable. Can discharge to home. See orders for details. Case discussed with CM, nursing and Dr Roman. Time spent with patient care and discharge greater than 30 minutes. DVT Prophylaxis: SCD's Resuscitation Status: Full Code - Physician Narrative Physician: Leonardo Hdez MD Narrative: Date: 11/13/17 Time: 09 Hospital Course Summary Disclaimer: The visit summary below is not to be considered part of the above Progress Note. Hospital Course: 11/09/17 Admission Acute lower GI bleed based on history and BUN 20--admit to inpatient with hgb again in 2 hours, PPI IV, npo, IVF, prns for pain and nausea. May need Aurelia consult for colonoscopy this admit. More likely diverticular, hemorrhoidal, than other. Normocytic anemia with prior 10, stable BP. Recheck and transfuse if less than 7 GERD hx on PPI Paroxysmal afib s/p ablation and should come off Xarelto now. Hyperglycemia likely stress induced S/P LLLobectomy for NSCLC and chronic hypoxic respiratory failure on 2L NC H/O lymphoma s/p chemo. Hemoglobin droped from 9.2 at presentation to 7.6. Transfuse 1 unit of blood now. Stay 2 units of blood had Consider aPCC if bleeding worsens Serial hemoglobin Protonix IV Consult Dr. Roman. I did discuss the patient with him earlier today Iron panel, B-12, folate Continue antihypertensives if blood pressures allow Continue Multaq DC Xarelto secondary to acute GI bleeding and anemia. The patient was transferred from the medical floor to CCU for closer monitoring. Discussed with patient's son who the patient wants to be DPOA. 11/10/[address] Roman, plan is for EGD and colonoscopy tomorrow. With her colon prep, she has had black to maroon colored stools. Continue PPI. Hemoglobin decreased to 7.6 - Transfused 1 unit pRBC. Lasix given after her unit of blood transfused. Continue SCDs for DVT prophylaxis Continue to monitor in intensive care. Renal panel, CBC, magnesium tomorrow. IV fluids were discontinued this morning. Continue serial hemoglobin. 11/11/17 OP DAY EGD and colonoscopy revealed: Colitis, mild gastritis, gastic polyps (likely fundic gland polyps). Potassium decreased to 3.3. Replace potassium IV. The patient was given Zofran for nausea last night and dose of multaq held last night but will be restarted today and Zofran stopped. 11/12/17 HGB with decrease from 9.0 yesterday am (with recheck H/H 9.8) to 8.5 this am. Will recheck H/H this afternoon. Advance diet to regular. Advised bland diet with cautious intake. Potassium decreased at 3.3 this am. Will give potassium chloride 20mEq x2 today. Continue IV Protonix - Carafate 1 gram AC/HS started yesterday. Encourage activities to help increase strength. Discussed PCP with patient - currently does not have PCP ([facility] for ONC care). Encourage patient to look into new PCP. 11/13/17 Will check UA secondary to dysuria and frequency. Potentially Pyridium may help bladder discomfort. HGB stable at 8.6. Potassium improved to 3.7. Rechecked this afternoon. Not able to produce urine sample. Not having the pain/ frequency she was this morning. In discussion with Dr Roman, he feels the colitis should be self limiting. Not needing treatments for colitis. Will continue with Carafate in addition to her PPI for 2 months. Hold Xarelto for at least 1 month - will have patient follow up with Dr Giraldo in 3 week to determine if she continues to need Xarelto. Encourage patient on establishing PCP care. Medically stable. Can discharge to home. See orders for details.
[2017-11-13] MEDS: LABETALOL 100 MG TABLET PO SCH (09:29)
--- NOTE | 2017-11-13 09:58 | Progress Note ---
DATE OF VISIT 11/12/2017 REASON FOR VISIT Follow GI bleed following colonoscopy. TEZ Keenan continues to have some left lower quadrant abdominal pain. She has tolerated a regular diet and ate fairly well for dinner. She said that she was feeling "blah" before dinner but felt better after eating. OBJECTIVE VITALS: Temperature 98.8, pulse 80, blood pressure 134/66, respiratory rate 20 , oxygen saturation 95% on 2 liters nasal cannula. GENERAL: The patient is awake, alert, in no acute distress. ABDOMEN: Soft, minimally tender in the left lower quadrant with no masses, fluid, guarding, or rebound noted. LABORATORY DATA Hemoglobin drifted down from 9.8 last night to 8.5. Recheck this afternoon was 8.8. SKYLAR test was negative. GI panel was negative. IMPRESSION 1. Colitis - uncertain etiology, pathology pending. 2. Mild gastritis. 3. Gastric polyps - likely fundic gland polyps. 4. GI blood loss - likely from colitis combined with use of Xarelto. 5. Anemia - lower hemoglobin than yesterday but improved since this morning. PLAN 1. Agree with regular diet. 2. Await pathology results. 3. I will continue to follow along with you with regards to the colitis and GI bleeding. HEATHER
[2017-11-13] MEDS: PANTOPRAZOLE 40 MG INJECTION IVP SCH (11:18)
[2017-11-13] MEDS: Oxycodone/Apap 10/325 1 TAB PO PRN (11:26)
[2017-11-13] MEDS ORDERED: PHENAZOPYRIDINE 95 MG TABLET PO ONE (13:43)
--- NOTE | 2017-11-13 16:39 | Progress Note ---
DATE OF VISIT 11/13/2017 REASON FOR VISIT Follow colitis and GI bleed. SUBJECTIVE Ree is doing well though she does report some ongoing left lower quadrant pain. Her main complaint is concern of a bladder infection and frequent urination. She has been eating well. OBJECTIVE VITAL SIGNS: Afebrile. Blood pressure 158/84. Oxygen saturation 95% on 2 liters nasal cannula. PHYSICAL EXAM GENERAL: The patient is awake, alert, in no acute distress. She is seated on the side of the bed eating lunch. ABDOMEN: Soft, minimally tender in the left lower quadrant with no guarding or rebound noted. LABORATORY DATA Hemoglobin 8.6. PATHOLOGY Pathology showed minimal gastritis and colitis most consistent with an infectious etiology. Her gastric polyps were benign fundic gland polyps. IMPRESSION 1. Mild gastritis. 2. Colitis - likely infectious but no significant pathogen noted on GI panel. 3. Benign fundic gland polyps - likely related to chronic PPI use. 4. Acute blood loss anemia - stable with no recent transfusion. 5. GI bleeding - likely from use of Xarelto combined with her colitis. 6. Use of Xarelto - currently held. PLAN 1. I recommended that Ree avoid anticoagulation for at least a month. She will need to have a discussion with Cardiology about whether or not it will need to be restarted once she is able to reinitiate anticoagulation. 2. Given her gastritis despite long-term use of PPI I recommended that she treat the gastritis with two months of Carafate therapy. 3. I will sign off of the case since hemoglobin has been stable. If additional treatment is needed, Dr. Santos will be covering for General Surgery this weekend. HEATHER
--- NOTE | 2017-11-15 17:40 | Discharge Summary ---
Discharge Information Date of admission: 11/09/17 03:28 Anticipated date of discharge: 11/13/17 Attending Physician: Leonardo Hdez MD Primary care physician: Vinod Vang MD Consults: Physician Consult: Cuate Roman Reason For Exam: GI bleed - Discharge Diagnosis (1) GI bleed Status: Acute (2) HTN (hypertension) Status: Acute (3) Hyperglycemia Status: Acute (4) Anemia Status: Acute (5) GERD (gastroesophageal reflux disease) Status: Acute Discharge diagnosis Acute GI bleed secondary to Colitis Mild gastritis Gastric polyps (likely fundic gland polyps) Associated conditions and complications Acute blood loss anemia - Transfuse 1 unit of blood on 11/09/2017 and 1 unit on 11/10/2017 Chronic anticoagulation-Xarelto on hold since admission Hypertension GERD History of A. fib-currently in sinus rhythm Recent left lower lobectomy for lung cancer Hypoxia since partial lung resection-stable on 2 L of oxygen Mild hypokalemia (Not POA) Dysuria - Procedures Procedures: DATE OF PROCEDURE: 11/11/2017 SURGEON: Cuate Roman MD PREOPERATIVE DIAGNOSES 1. Acute GI bleed. 2. Acute blood loss anemia secondary to GI losses. 3. Anticoagulation with Xarelto - held for greater than 24 hours. POSTOPERATIVE DIAGNOSES 1. Gastritis. 2. Small gastric polyps - likely fundic gland polyps, pathology pending. 3. Colitis most significantly affecting the distal 70 cm of the colon but extending from the cecum to the rectum - pathology pending. 4. Sliding hiatal hernia. PROCEDURE 1. Esophagogastroduodenoscopy with antral biopsy for SKYLAR testing, gastric biopsies for histology, and hot biopsy forceps polypectomy x3. 2. Total colonoscopy with biopsies. - Laboratory Labs: Admit Lab 11/09/17 01:45 WBC 5.4 Hgb 9.2 L Hct 30.3 L MCV 83.5 Plt Count 230 Neut % (Auto) 80.9 H Lymph % (Auto) 7.4 L [place] % (Auto) 7.2 Eos % (Auto) 4.1 H Baso % (Auto) 0.2 Admit Lab 11/09/17 01:45 Sodium 145 H Potassium 3.9 Chloride 105 Carbon Dioxide 28 Anion Gap 12 BUN 20.0 H Creatinine 1.0 GFR Calculation 55 BUN/Creatinine Ratio 20 Glucose 124 H Calculated Osmolality 283 H Calcium 9.1 Total Bilirubin 0.20 AST 13 L ALT 19 Alkaline Phosphatase 101 Total Protein 6.6 Albumin 4.0 Globulin 2.6 Albumin/Globulin Ratio 1.5 Lipase 226 Anemia Tests 11/09/17 11/10/17 13:21 03:53 Iron 79 TIBC 291 % Saturation 27 Vitamin B12 306 Folate 14.3 11/13/17 04:23 11/13/17 04:23 - Microbiology Microbiology 11/11/17 14:58 Gastric Biopsy Helicobacter pylori Rapid Urease - Final - NEGATIVE History of Present Illness HPI: Ms. Edgar is a 67yo woman with h/o lymphoma 12/2016 s/p chemo and then 09/2017 LLLobectomy for NSCLC, afib on Xarelto but now s/p ablation and was to see Enzo 11/11/2017 to discuss need for further anticoagulation and no other DVT/ PE hx. Notes GERD but no other GI bleed history until tonight with 5 stools over 4 hours starting at [facility] with no nausea or abd pain. Had colonoscopy 5-7 years ago and was to see Aurelia next month for endoscopy eval. No syncope, fevers, chills, pain currently. Son with her says mentating fine. For complete details of the H&P refer to that document. Objective Vital signs: Temperature 97.1 F 11/13/17 08:00 Pulse Rate 75 11/13/17 08:00 Respiratory Rate 18 11/13/17 08:00 Blood Pressure 158/84 H 11/13/17 08:00 Pulse Oximetry 95 11/13/17 08:00 Height/Weight/BMI: Height 1.63 m Weight 86.4 kg Body Mass Index 33.5 Hospital Course This is a general summary of the patient's hospital course. For more details refer to the complete medical record. Hospital course: 11/09/17 Admission Acute lower GI bleed based on history and BUN 20--admit to inpatient with hgb again in 2 hours, PPI IV, npo, IVF, prns for pain and nausea. May need Aurelia consult for colonoscopy this admit. More likely diverticular, hemorrhoidal, than other. Normocytic anemia with prior 10, stable BP. Recheck and transfuse if less than 7 GERD hx on PPI Paroxysmal afib s/p ablation and should come off Xarelto now. Hyperglycemia likely stress induced S/P LLLobectomy for NSCLC and chronic hypoxic respiratory failure on 2L NC H/O lymphoma s/p chemo. Hemoglobin droped from 9.2 at presentation to 7.6. Transfuse 1 unit of blood now. Stay 2 units of blood had Consider aPCC if bleeding worsens Serial hemoglobin Protonix IV Consult Dr. Roman. I did discuss the patient with him earlier today Iron panel, B-12, folate Continue antihypertensives if blood pressures allow Continue Multaq DC Xarelto secondary to acute GI bleeding and anemia. The patient was transferred from the medical floor to CCU for closer monitoring. Discussed with patient's son who the patient wants to be DPOA. 11/10/[address] Roman, plan is for EGD and colonoscopy tomorrow. With her colon prep, she has had black to maroon colored stools. Continue PPI. Hemoglobin decreased to 7.6 - Transfused 1 unit pRBC. Lasix given after her unit of blood transfused. Continue SCDs for DVT prophylaxis Continue to monitor in intensive care. Renal panel, CBC, magnesium tomorrow. IV fluids were discontinued this morning. Continue serial hemoglobin. 11/11/17 OP DAY EGD and colonoscopy revealed: Colitis, mild gastritis, gastic polyps (likely fundic gland polyps). Potassium decreased to 3.3. Replace potassium IV. The patient was given Zofran for nausea last night and dose of multaq held last night but will be restarted today and Zofran stopped. 11/12/17 HGB with decrease from 9.0 yesterday am (with recheck H/H 9.8) to 8.5 this am. Will recheck H/H this afternoon. Advance diet to regular. Advised bland diet with cautious intake. Potassium decreased at 3.3 this am. Will give potassium chloride 20mEq x2 today. Continue IV Protonix - Carafate 1 gram AC/HS started yesterday. Encourage activities to help increase strength. Discussed PCP with patient - currently does not have PCP ([facility] for ONC care). Encourage patient to look into new PCP. 11/13/17 Will check UA secondary to dysuria and frequency. Potentially Pyridium may help bladder discomfort. HGB stable at 8.6. Potassium improved to 3.7. Rechecked this afternoon. Not able to produce urine sample. Not having the pain/ frequency she was this morning. In discussion with Dr Roman, he feels the colitis should be self limiting. Not needing treatments for colitis. Will continue with Carafate in addition to her PPI for 2 months. Hold Xarelto for at least 1 month - will have patient follow up with Dr Giraldo in 3 week to determine if she continues to need Xarelto. Encourage patient on establishing PCP care. Medically stable. Can discharge to home. See orders for details. Time spent with patient: discharge greater than 30 minutes Discharge Plan - Discharge Disposition Discharge Date: 11/13/17 Disposition: 86 Home Health Service *Condition: Stable Reason For Visit (Visit label in EMR): GI bleed - Discharge Medications *Discharge Medications: New Metoclopramide [Reglan] 10 mg PO Q6HR PRN #30 tab PRN Reason: Nausea Sucralfate [Carafate] 1 gm PO ACHS #120 tab Sodium Chloride [[place]] 1 spray EA NOSTRIL PRN PRN spray PRN Reason: Congestion Continue Lisinopril 10 mg PO DAILY #0 Prochlorperazine Maleate [Compazine] 1 tab PO Q6HR PRN PRN Reason: Nausea Dronedarone [Multaq] 400 mg PO BID #0 Labetalol HCl 1.5 mg PO BID #0 Furosemide [Lasix] 1 tab PO DAILY Oxycodone/Apap 10/325 [Percocet 10/325] 1 tab PO Q6HR Changed Omeprazole Magnesium [Prilosec Otc] 20 mg PO BIDWM #0 Discontinued Rivaroxaban [Xarelto] 20 mg PO HS #1 - Discharge Packet/Instructions *Diet: As tolerated *Activity: As tolerated *Pain Management/Treatment: Continue prior pain medications *Wound Care: n/a Additional Instructions: Use Prilosec (omperazole) twice a day for 1 month to help heal gastritis. Use Carafate 1 gram with meal and at bedtime for 2 months to help heal gastritis. Stay off Xarelto for at least 1 month. Would like you to see Dr Giraldo before your would restart Xarelto to determine if you need to continue Xarelto. *Expected Signs/Symptoms: Resolution of loose stool. *Notify Physician if: Temp > 100.4. Intractable nausea, vomiting, or diarrhea. *During Business Hours Contact: Dr Vang *After Business Hours Contact: Call [facility] [place] and have your care provider contacted. *Pending Lab/Results: No Pending Lab - Referrals/Follow Up *Referrals/Follow Up: Justin Giraldo MD [Physician] - 3 Weeks (Discuss continued use of Xarelto. Hospitalized at [facility] [place] 11/09 until 11/13 with Anemia secondary to colitis and gastritis. APPOINTMENT ON 12/03 AT 1010.) Vinod Vang MD [Family Provider] - (Continue to follow with Dr Vang for oncological care.) - Patient Handouts Patient Handouts: Gastrointestinal Bleeding (GEN) - Dismissal Complete Discharge Instructions are:: Complete Physician Narrative - Narrative Physician: Leonardo Hdez MD Attestation Narrative: Date: 11/15/17 Time: 1737 I have independently interviewed and examined patient prior to discharge. See my progress note for details. Medically stable for discharge to home.
== END 2017-11-13 16:00 | disposition home health service (06) | DRG 378 ==
LOC: ED 01:27 → MED 03:28 → SUATTDRO 03:28 → MED 03:45 → CCU 08:27 → MED 11-11 19:45
PROVIDERS: ADMIT Hospitalist; ATTEND Hospitalist
PROC: END.EGD (2017-11-11 12:40)